=== PATIENT | male | born 1965 | race Caucasian/White ===

== ENCOUNTER 2017-12-28 11:48 | Inpatient (IN) ==
[2017-12-28] MEDS ORDERED: diazePAM 5 MG TABLET PO ONE (12:12)
--- NOTE | 2017-12-28 12:17 | Emergency Department Note ---
Disposition Clinical Impression: Alcohol withdrawal delirium Disposition: Admitted As Inpatient Condition: Good Referrals: Winifred Eddy, [employer] [Primary Care Provider] - Forms: ED Satisfaction Letter Time of Disposition: 16:09 Psych HPI - General Chief Complaint: ED Psychiatric Symptoms Stated Complaint: psych eval, hallucinations Time Seen by Provider: 12/28/17 12:00 Source: patient, family Limitations: no limitations Nursing Notes Reviewed: Yes Vital Signs Reviewed: Yes - History of Present Illness HPI Narrative: This is a 52 year-old male with history of COPD, HLD, alcoholism (last drink 6 days ago), cirrhosis, and PTSD. He presents with auditory hallucinations ( "chainsaw sound") and visual hallucinations ("snakes, mice") for he past 3-4 days. He says he wanted to hit his with a stick because of the snakes and mice. Pt complaint: other (Visual Hallucinations) If medical clearance, reason: medical condition, psychiatric condition Onset (ago): day(s) (3-4) Improves with: none Worsens with: none Context: recent alcohol abuse (last drink 6 days ago), not taking psychiatric medications (didn't take antipsychotic medication a couple of days last week), new medication(s) (recently started Wellbutrin) Associated Psychiatric Symptoms: auditory hallucinations, visual hallucinations Associated symptoms: Denies: headache, shortness of breath Traumatic symptoms: denies traumatic injury Self harm or harm to others: admits thoughts of harming others - Related Data Home Medications Medication Instructions Recorded Confirmed Albuterol Sulfate [Proair Hfa] 2 puff IH Q4-6H PRN 12/28/17 12/28/17 Amantadine [Symmetrel] 100 mg PO BID 12/28/17 12/28/17 BuPROPion XL (24 HR) [Wellbutrin 300 mg PO DAILY 12/28/17 12/28/17 XL] Fluticasone/Salmeterol [Advair 1 puff IH BID 12/28/17 12/28/17 500-50 Diskus] Folic Acid 1 mg PO DAILY 12/28/17 12/28/17 Multivit-Min/FA/Lycopen/Lutein [A 1 tab PO DAILY 12/28/17 12/28/17 Thru Z Select Multivit Tab] PARoxetine HCl [Paroxetine HCl] 40 mg PO DAILY 12/28/17 12/28/17 Pravastatin Sodium [Pravachol] 40 mg PO DAILY 12/28/17 12/28/17 Propranolol [Inderal] 10 mg PO BID 12/28/17 12/28/17 RisperiDONE [Risperdal] 0.5 mg PO TID 12/28/17 12/28/17 Tamsulosin [Flomax] 0.4 mg PO DAILY 12/28/17 12/28/17 Valproic Acid [Depakene] 250 mg PO QAM 12/28/17 12/28/17 Valproic Acid [Depakene] 500 mg PO QPM 12/28/17 12/28/17 risperiDONE [RisperDAL] 0.25 mg PO TID 12/28/17 12/28/17 Allergies Allergy/AdvReac Type Severity Reaction Status Date / Time Cyclobenzaprine AdvReac See Verified 12/28/17 11:53 [From Flexeril] Comments All systems ED: reviewed and negative except as stated. Cardiovascular: Denies: chest pain Respiratory: Denies: dyspnea Gastrointestinal: Denies: abdominal pain Neurological: Reports: other (tremulous) Psychiatric: Reports: auditory hallucinations, visual hallucinations Past Medical History - Past Medical History Medical history: Reports: GI bleed, other Surgical history: Reports: other Psychiatric history: Reports: no psych history - Social History Smoking Status: Never smoker Smokeless Tobacco Status: No Alcohol use: Reports: rarely Drug use: Reports: none Physical Exam - General Limitations: no limitations General appearance: alert, in no apparent distress - Head Head exam: atraumatic, normocephalic - Eye Eye exam: Present: normal appearance, PERRL, EOMI, nystagmus (few beats) - ENT ENT exam: normal exam - Neck Neck exam: Present: normal inspection. Absent: meningismus - Respiratory Respiratory exam: Present: normal lung sounds bilaterally. Absent: respiratory distress - Cardiovascular Cardiovascular exam: Present: regular rate, normal rhythm, normal heart sounds - Abdominal Exam Abdominal exam: Present: soft, Non-Tender. Absent: distention - Extremities Exam Extremities exam: Present: normal inspection - Neurological Exam Neurological exam: Present: alert, oriented X3. Absent: CN II-XII intact, motor sensory deficit - Psychiatric Psychiatric exam: Present: anxious (mildly) - Skin Skin exam: Present: warm, dry, intact Course - Reevaluation(s) Reevaluation #1: Updated patient and family about recommendations and plans. On recheck, patient says that the Valium "camled me down a little bit," but he' s still having the hallucinations. Time: 16:08 - Consultations Consultation #1: Patient has been evaluated by [facility], and they suspect symptoms due to EtOH withdrawal. They recommend admission for detox and they will consult upstairs as needed. Time: 16:08 Consultation #2: Reviewed case with Dr. Payne, and patient accepted for admission. Time: 16:28 Vital Signs Temperature 98.0 F 12/28/17 11:52 Pulse Rate 82 12/28/17 11:52 Respiratory Rate 18 12/28/17 11:52 Blood Pressure 120/86 12/28/17 11:52 O2 Sat by Pulse Oximetry 95 12/28/17 11:52 Temperature 97.3 F L 12/28/17 12:46 Pulse Rate 81 12/28/17 16:55 Respiratory Rate 16 12/28/17 16:55 Blood Pressure 129/96 12/28/17 16:55 O2 Sat by Pulse Oximetry 98 12/28/17 16:55 Oxygen Delivery Oxygen Delivery Room Air Psych - MDM Narrative Medical decision making narrative: This is a 52 year-old male with history of alcholism and PTSD who presents with hallucinations for 3-4 days. Last drink was about 6 days ago. There has also been some medication noncompliance. DDx includes EtOH withdrawal, medication noncompliance, primary psychiatric problems, mediation toxicity (e.g., valproic acid). Less likely hepatic encephalopathy. - Lab Data Lab results reviewed: Yes I reviewed the patient's lab results. Result diagrams: 12/28/17 12:25 12/28/17 12:25 Lab Results 12/28/17 12/28/17 12/28/17 Range/Units 12:25 12:25 12:25 WBC 6.2 (4.3-11.1) K/mcL RBC 4.71 (4.19-5.50) M/mcL Hgb 14.8 (12.9-16.9) g/dL Hct 43.1 (37.5-50.1) % MCV 91.5 (83.0-100.0) fL MCH 31.4 (28.0-33.3) pg MCHC 34.3 (31.6-35.5) g/dL RDW 12.9 (11.5-14.5) % Plt Count 143 (140-400) K/mcL MPV 12.2 (9.4-12.4) fL Immature Gran % 0.5 (0-4) % Seg Neutrophils % 44.7 % Lymphocytes % 38.7 % Monocytes % 14.5 % Eosinophils % 1.0 % Basophils % 0.6 % Neutrophils # 2.8 (1.6-8.9) K/mcL Lymphocytes # 2.4 (0.6-4.6) K/mcL Monocytes # 0.9 (0.0-1.3) K/mcL Eosinophils # 0.1 (0.0-0.6) K/mcL Basophils # 0.0 (0.0-0.2) K/mcL Sodium 136 (136-145) mEq/L Potassium 4.4 (3.5-5.1) mEq/L Chloride 101 (98-107) mEq/L Carbon Dioxide 27 (23-29) mEq/L BUN 15 (6-20) mg/dL Creatinine 1.20 (0.70-1.30) mg/dL Est GFR ( Amer) > 60 (> 60) Est GFR (Non-Af Amer) > 60 (> 60) BUN/Creatinine Ratio 13 (6-26) Glucose 105 (70-105) mg/dL Calculated Osmolality 283 (280-300) Calcium 9.5 (8.6-10.3) mg/dL Total Bilirubin 0.7 (0.3-1.0) mg/dL Direct Bilirubin 0.2 (0.0-0.2) mg/dL Indirect Bilirubin 0.5 (0.0-1.2) mg/dL AST 17 (13-39) Units/L ALT 21 (7-52) Units/L Alkaline Phosphatase 82 (34-104) Units/L Ammonia 48 (16-53) mcmol/L Serum Total Protein 7.2 (6.4-8.9) g/dL Albumin 4.9 (3.5-5.7) g/dL Globulin 2.3 L (2.4-3.5) g/dL Albumin/Globulin Ratio 2.1 (1.1-2.2) Urine Color (Yellow) Urine Clarity (Clear) Urine pH (5.0-8.0) pH Units Ur Specific Atwood (1.010-1.025) Urine Protein (Neg-Trace) mg/dL Urine Glucose (UA) (Normal) mg/dL Urine Ketones (Negative) mg/dL Urine Blood (Negative) Urine Nitrite (Negative) Urine Bilirubin (Negative) Urine Urobilinogen (Normal) mg/dL Ur Leukocyte Esterase (Negative) Salicylates < 2.5 L (15.0-30.0) mg/dL Urine Opiates Screen (Rwrecg=865) ng/mL Acetaminophen < 10 L (10-20) mcg/mL Ur Barbiturates Screen (Amrjsk=580) ng/mL Valproic Acid 68 (50-100) mcg/mL Ur Phencyclidine Scrn (Cutoff=25) ng/mL Ur Amphetamines Screen (Xnvzev=8578) ng/mL U Benzodiazepines Scrn (Qlidus=621) ng/mL Urine Cocaine Screen (Cutoff= 300) ng/mL U Marijuana (THC) Screen (Cutoff = 50) ng/mL Ethyl Alcohol < 10 (Less than 10) mg/dL 12/28/17 12/28/17 Range/Units 12:29 12:46 WBC (4.3-11.1) K/mcL RBC (4.19-5.50) M/mcL Hgb (12.9-16.9) g/dL Hct (37.5-50.1) % MCV (83.0-100.0) fL MCH (28.0-33.3) pg MCHC (31.6-35.5) g/dL RDW (11.5-14.5) % Plt Count (140-400) K/mcL MPV (9.4-12.4) fL Immature Gran % (0-4) % Seg Neutrophils % % Lymphocytes % % Monocytes % % Eosinophils % % Basophils % % Neutrophils # (1.6-8.9) K/mcL Lymphocytes # (0.6-4.6) K/mcL Monocytes # (0.0-1.3) K/mcL Eosinophils # (0.0-0.6) K/mcL Basophils # (0.0-0.2) K/mcL Sodium (136-145) mEq/L Potassium (3.5-5.1) mEq/L Chloride (98-107) mEq/L Carbon Dioxide (23-29) mEq/L BUN (6-20) mg/dL Creatinine (0.70-1.30) mg/dL Est GFR ( Amer) (> 60) Est GFR (Non-Af Amer) (> 60) BUN/Creatinine Ratio (6-26) Glucose (70-105) mg/dL Calculated Osmolality (280-300) Calcium (8.6-10.3) mg/dL Total Bilirubin (0.3-1.0) mg/dL Direct Bilirubin (0.0-0.2) mg/dL Indirect Bilirubin (0.0-1.2) mg/dL AST (13-39) Units/L ALT (7-52) Units/L Alkaline Phosphatase (34-104) Units/L Ammonia (16-53) mcmol/L Serum Total Protein (6.4-8.9) g/dL Albumin (3.5-5.7) g/dL Globulin (2.4-3.5) g/dL Albumin/Globulin Ratio (1.1-2.2) Urine Color Yellow (Yellow) Urine Clarity Clear (Clear) Urine pH 6.5 (5.0-8.0) pH Units Ur Specific [place] 1.018 (1.010-1.025) Urine Protein Negative (Neg-Trace) mg/dL Urine Glucose (UA) Normal (Normal) mg/dL Urine Ketones Trace H (Negative) mg/dL Urine Blood Negative (Negative) Urine Nitrite Negative (Negative) Urine Bilirubin Negative (Negative) Urine Urobilinogen Normal (Normal) mg/dL Ur Leukocyte Esterase Negative (Negative) Salicylates (15.0-30.0) mg/dL Urine Opiates Screen Negative (Vgzotm=218) ng/mL Acetaminophen (10-20) mcg/mL Ur Barbiturates Screen Negative (Thopot=070) ng/mL Valproic Acid (50-100) mcg/mL Ur Phencyclidine Scrn Negative (Cutoff=25) ng/mL Ur Amphetamines Screen Negative (Yiwhxw=9540) ng/mL U Benzodiazepines Scrn Negative (Hxqvgv=434) ng/mL Urine Cocaine Screen Negative (Cutoff= 300) ng/mL U Marijuana (THC) Screen Negative (Cutoff = 50) ng/mL Ethyl Alcohol (Less than 10) mg/dL Psychiatric Medical Clearance - Medical Clearance Checklist Medical History: No Social History Section defined Current Vitals: Last Vital Signs Temp 97.3 F L 12/28/17 12:46 Pulse 81 12/28/17 16:55 Resp 16 12/28/17 16:55 BP 129/96 12/28/17 16:55 Pulse Ox 98 12/28/17 16:55 Psychiatric Lab Panel: Drug Levels and Toxicity 12/28/17 12/28/17 12:25 12:46 Urine Opiates Screen Negative Acetaminophen < 10 L Ur Barbiturates Screen Negative Ur Phencyclidine Scrn Negative Ur Amphetamines Screen Negative U Benzodiazepines Scrn Negative Urine Cocaine Screen Negative U Marijuana (THC) Screen Negative Ethyl Alcohol < 10 Abnormal Labs: Abnormal lab results Globulin 2.3 g/dL (2.4-3.5) L 12/28/17 12:25 Urine Ketones Trace mg/dL (Negative) H 12/28/17 12:29 Salicylates < 2.5 mg/dL (15.0-30.0) L 12/28/17 12:25 Acetaminophen < 10 mcg/mL (10-20) L 12/28/17 12:25 Statement of Medical Clearance: I have evaluated the patient, reviewed diagnostic information, and certify that the patient's medical condition is sufficiently stable that transfer to the psychiatric unit does not pose a significant risk of deterioration.
[2017-12-28 12:59] LABS: Basophils % 0.6 %; Eosinophils # 0.1 K/mcL (0.0-0.6); Hematocrit 43.1 % (37.5-50.1); Hemoglobin 14.8 g/dL (12.9-16.9); Immature Granulocytes % 0.5 % (0-4); Lymphocytes # 2.4 K/mcL (0.6-4.6); Lymphocytes % 38.7 %; Mean Corpuscular HGB Conc 34.3 g/dL (31.6-35.5); Mean Corpuscular Hemoglobin 31.4 pg (28.0-33.3); Mean Corpuscular Volume 91.5 fL (83.0-100.0); Mean Platelet Volume 12.2 fL (9.4-12.4); Monocytes # 0.9 K/mcL (0.0-1.3); Monocytes % 14.5 %; Neutrophils # 2.8 K/mcL (1.6-8.9); Platelet Count 143 K/mcL (140-400); Red Blood Count 4.71 M/mcL (4.19-5.50); Red Cell Distribution Width 12.9 % (11.5-14.5); Segmented Neutrophils % 44.7 %
[2017-12-28 13:00] LABS: Bilirubin,Urine Negative (Negative); Blood,Urine Negative (Negative); Clarity,Urine Clear (Clear); Color,Urine Yellow (Yellow); Glucose,Urine (UA) Normal (Normal); Ketones,Urine Trace mg/dL (Negative); Leukocyte Esterase,Urine Negative (Negative); Nitrite,Urine Negative (Negative); PH,Urine 6.5 pH Units (5.0-8.0); Protein,Urine Negative (Neg-Trace); Specific Gravity,Urine 1.018 (1.010-1.025); Urobilinogen,Urine Normal (Normal)
[2017-12-28 13:12] LABS: Acetaminophen < 10 mcg/mL (10-20); Alanine Aminotransferase 21 Units/L (7-52); Albumin 4.9 g/dL (3.5-5.7); Albumin/Globulin Ratio 2.1 (1.1-2.2); Alkaline Phosphatase 82 Units/L (34-104); Aspartate Amino Transferase 17 Units/L (13-39); BUN/Creatinine Ratio 13 (6-26); Bilirubin,Direct 0.2 mg/dL (0.0-0.2); Bilirubin,Indirect 0.5 mg/dL (0.0-1.2); Bilirubin,Total 0.7 mg/dL (0.3-1.0); Blood Urea Nitrogen 15 mg/dL (6-20); Calcium 9.5 mg/dL (8.6-10.3); Carbon Dioxide 27 mEq/L (23-29); Chloride 101 mEq/L (98-107); Ethanol < 10 mg/dL (Less than 10); Globulin 2.3 g/dL (2.4-3.5); Glucose 105 mg/dL (70-105); Osmolality,Calculated 283 (280-300); Potassium 4.4 mEq/L (3.5-5.1); Salicylate < 2.5 mg/dL (15.0-30.0); Sodium 136 mEq/L (136-145); Total Protein 7.2 g/dL (6.4-8.9); Valproate 68 mcg/mL (50-100); eGFR For African Americans > 60 (> 60); eGFR For Non-African Americans > 60 (> 60)
[2017-12-28 13:22] LABS: Amphetamine Screen,Urine Negative ng/mL (Cutoff=1000); Barbiturate Screen,Urine Negative ng/mL (Cutoff=200); Benzodiazepines Screen,Urine Negative ng/mL (Cutoff=200); Cannabinoid Screen,Urine Negative ng/mL (Cutoff = 50); Cocaine Screen,Urine Negative ng/mL (Cutoff= 300); Opiate Screen,Urine Negative ng/mL (Cutoff=300); Phencyclidine Screen,Urine Negative ng/mL (Cutoff=25)
[2017-12-28] MEDS ORDERED: risperiDONE 0.25 MG TABLET PO SCH ×2 (16:30)
[2017-12-28] MEDS ORDERED: risperiDONE 0.25 MG TABLET PO ONE (17:30)
--- NOTE | 2017-12-28 18:32 | Internal Med History&Physical ---
Date of Encounter: 12/28/17 Time of Encounter: 18:20 Internal Medicine - H&P: HPI Admitted From: Emergency Dept Plans for Post Hospital Care: Home History of present illness: Mr. Moeller is a 52 year old male with history of ETOH abuse, Emphysema, COPD, acute resp failure, hepatitis B, polysubstance abuse. Pt states he had lung surgery for emphysema at [facility] a year ago and post op he developed ETOH withdrawal. States at that time he had to be intubated. He reports that he drinks about a 12 pack of beer a day and has been doing so for about 32 years. Pt states his last ETOH drink was about sick days ago. States he has been hallucinating for about 3- 4 days. HE reports that he has been seeing snakes and mice. Past Med Surg Social Fam HX - Past Medical History Medical history: GI bleed, other Additional medical history: emphysema Psychiatric history: no psych history - Past Surgical History Surgical History: other Additional surgical history: t&a, lung reduction surgery - Social History Smoking Status: Never smoker Smokeless Tobacco Status: No Alcohol use: rarely Drug use: none - Family History Father Adopted: No Family Member Ethnicity: Non- Living Status: Still Living Hx Family Cardiac Disorders: Yes (pacer/defib,[place]) Hx Family Respiratory Disorders: Yes (COPD) Hx Family Cancer: No Hx Family GI Disorders: No Hx Family Endocrine Disorder: Yes (DM) Hx Family Neuromuscular Disorders: No Hx Family Neurologic Disorders: No Hx Family HEENT Disorders: No Hx Family Autoimmune Disorders: No Internal Medicine - H&P: Meds Albuterol Sulfate [Proair Hfa] 2 puff IH Q4-6H PRN 12/28/17 [History] Amantadine [Symmetrel] 100 mg PO BID 12/28/17 [History] BuPROPion XL (24 HR) [Wellbutrin XL] 300 mg PO DAILY 12/28/17 [History] Fluticasone/Salmeterol [Advair 500-50 Diskus] 1 puff IH BID 12/28/17 [History] Folic Acid 1 mg PO DAILY 12/28/17 [History] Multivit-Min/FA/Lycopen/Lutein [A Thru Z Select Multivit Tab] 1 tab PO DAILY 12/10 [History] PARoxetine HCl [Paroxetine HCl] 40 mg PO DAILY 12/28/17 [History] Pravastatin Sodium [Pravachol] 40 mg PO DAILY 12/28/17 [History] Propranolol [Inderal] 10 mg PO BID 12/28/17 [History] RisperiDONE [Risperdal] 0.5 mg PO TID 12/28/17 [History] Tamsulosin [Flomax] 0.4 mg PO DAILY 12/28/17 [History] Valproic Acid [Depakene] 250 mg PO QAM 12/28/17 [History] Valproic Acid [Depakene] 500 mg PO QPM 12/28/17 [History] risperiDONE [RisperDAL] 0.25 mg PO TID 12/28/17 [History] 3 Allergy/AdvReac Type Severity Reaction Status Date / Time Cyclobenzaprine AdvReac See Verified 12/28/17 11:53 [From Flexeril] Comments All Systems PM: A 10-system review of systems was performed and is negative for pertinent findings except as documented above in the HPI. - Constitutional Vitals: Temp Pulse Resp BP Pulse Ox 97.3 F L 81 16 129/96 98 12/28/17 12:46 12/28/17 16:55 12/28/17 16:55 12/28/17 16:55 12/28/17 16:55 General appearance: Present: A&O X 3, no acute distress - Head Head exam: Present: atraumatic, normocephalic - Eye Eye exam: Present: PERRL, conjuntiva pink, sclera anicteric Pupils: Present: PERRL - Neck Neck exam general surgery: Present: supple, trachea midline. Absent: lymphadenopathy - Respiratory Respiratory exam: Present: decreased breath sounds, CTAB. Absent: accessory muscle use, rales, rhonchi, wheezes - Cardiovascular Cardiovascular exam: Present: RRR, +S1, +S2. Absent: diastolic murmur, gallop, rubs, systolic murmur - GI/Abdominal GI/Abdominal exam: Present: normal bowel sounds, soft, no peritoneal signs. Absent: distended, tenderness - Extremities Exam Extremities exam: Present: pedal edema, warm, radial pulses palpable and symmetrical. Absent: calf tenderness, cyanotic - Neurological Exam Neurological exam: Present: CN II-XII intact, oriented X3, no focal deficits. Absent: pronater drift, facial droop, speech deficit - Skin Skin exam: Present: dry, intact Internal Med - H&P Results - Labs CBC & Chem 7: 12/28/17 12:25 12/28/17 12:25 Labs: Short CBC 12/28/17 Range/Units 12:25 WBC 6.2 (4.3-11.1) K/mcL Hgb 14.8 (12.9-16.9) g/dL Hct 43.1 (37.5-50.1) % Plt Count 143 (140-400) K/mcL Neutrophils # 2.8 (1.6-8.9) K/mcL BMP 12/28/17 12:25 Sodium 136 Potassium 4.4 Chloride 101 Carbon Dioxide 27 BUN 15 Creatinine 1.20 Glucose 105 Calcium 9.5 Liver Function 12/28/17 Range/Units 12:25 Total Bilirubin 0.7 (0.3-1.0) mg/dL Direct Bilirubin 0.2 (0.0-0.2) mg/dL AST 17 (13-39) Units/L ALT 21 (7-52) Units/L Alkaline Phosphatase 82 (34-104) Units/L Albumin 4.9 (3.5-5.7) g/dL Urine 12/28/17 Range/Units 12:29 Urine Color Yellow (Yellow) Urine Clarity Clear (Clear) Urine pH 6.5 (5.0-8.0) pH Units Ur Specific [place]all 1.018 (1.010-1.025) Urine Protein Negative (Neg-Trace) mg/dL Urine Glucose (UA) Normal (Normal) mg/dL - Assessment and plan (1) Alcohol withdrawal delirium Current Visit: Yes Status: Acute Assessment and plan: Will place on Librium taper. Will monitor on telemetry. [facility] protocol. sitter. (2) Alcohol abuse Current Visit: No Status: Acute Assessment and plan: Cessation strongly adviced. Pt states he does not think he has a alcohol problem. He states he is just a heavy drinker. (3) COPD (chronic obstructive pulmonary disease) Current Visit: No Status: Acute Assessment and plan: Not in acute exacerbation. Will resume home respiratory regimen for now. Qualifiers: Qualified Code(s): J44.9 - Chronic obstructive pulmonary disease, unspecified - Time Spent With Patient Total time spent is greater than 50% in coordination of care (as documented) at patient's floor/unit and/or counseling patient: 25 - 35 minutes
[2017-12-28] MEDS ORDERED: Acetaminophen 325 MG TABLET PO PRN (19:34)
[2017-12-28] MEDS ORDERED: *HR* Promethazine 25 MG/ML VIAL IVP PRN (19:34)
[2017-12-28] MEDS ORDERED: Naloxone 0.4 MG/ML INJ IVP PRN (19:34)
[2017-12-28 20:35] LABS: Magnesium 2.2 mg/dL (1.6-2.6); Phosphorous 3.7 mg/dL (2.7-4.5)
[2017-12-28] MEDS ORDERED: Valproic Acid 250 MG CAPSULE PO SCH (22:00)
[2017-12-28] MEDS: risperiDONE 0.25 MG TABLET PO SCH (22:18)
[2017-12-28] MEDS: 0.9 % Sodium Chloride 1,000 ML IVC SCH (22:19)
[2017-12-28] MEDS: Valproic Acid 250 MG CAPSULE PO SCH (22:25)
[2017-12-28] MEDS: *HR* LORazepam 2 MG/ML VIAL IVP PRN (22:26)
[2017-12-28] MEDS: Budesonide/Formoterol 160/4.5 MDI IH SCH (22:53)
[2017-12-29 04:41] LABS: BUN/Creatinine Ratio 14 (6-26); Blood Urea Nitrogen 14 mg/dL (6-20); Calcium 8.9 mg/dL (8.6-10.3); Carbon Dioxide 23 mEq/L (23-29); Chloride 102 mEq/L (98-107); Glucose 95 mg/dL (70-105); Osmolality,Calculated 284 (280-300); Potassium 3.7 mEq/L (3.5-5.1); Sodium 137 mEq/L (136-145); eGFR For African Americans > 60 (> 60); eGFR For Non-African Americans > 60 (> 60)
[2017-12-29] MEDS: *HR* Enoxaparin 40 MG/0.4 ML SYRINGE SQ SCH (05:16)
[2017-12-29] MEDS ORDERED: *HR* LORazepam 2 MG/ML VIAL IVP PRN ×2 (07:05)
[2017-12-29] MEDS: Valproic Acid 250 MG CAPSULE PO SCH ×2 (07:51→22:03)
[2017-12-29] MEDS: BuPROPion XL (24 HR) 150 MG TABLET PO SCH (07:51)
[2017-12-29] MEDS: risperiDONE 0.25 MG TABLET PO SCH ×3 (07:51→22:04)
[2017-12-29] MEDS: Folic Acid 1 MG TABLET PO SCH (07:55)
[2017-12-29] MEDS: Multivit/Ca/Min/Fe/FA 1 TAB TABLET PO SCH (07:55)
[2017-12-29] MEDS: Budesonide/Formoterol 160/4.5 MDI IH SCH ×2 (08:00→20:18)
[2017-12-29] MEDS ORDERED: Dexmedetomidine HCl 400 MCG/100 ML MLS IVC ONE (08:29)
[2017-12-29] MEDS: 0.9 % Sodium Chloride 1,000 ML IVC SCH (08:56)
--- NOTE | 2017-12-29 10:19 | Internal Med Progress Note ---
<Loren Hagen - Last Filed: 12/29/17 14:28> Date of Encounter: 12/29/17 Time of Encounter: 10:17 - Assessment and plan (1) Alcohol withdrawal delirium Current Visit: Yes Status: Acute Assessment and plan: Pt presented complaining of hearing chainsaws, seeing snakes and mice on admission. Pt was agitated this morning, worsening DT sx and placed on precedex gtt. Will wean as able as we do not want to over-sedate him. Plan: Continue CIWA protocol Continue precedex gtt, wean as able Continue librium taper Tele monitor (2) Alcohol abuse Current Visit: No Status: Acute Assessment and plan: Pt stated in ED that last drink was 6 days prior to admission. Hx of DTs after surgery at [facility]. Drinks about a 12 pack of beers daily Management per above plan (3) PTSD (post-traumatic stress disorder) Current Visit: Yes Status: Chronic Assessment and plan: Continue home meds, consider psych evaluation after medically stable from DTs. (4) Major depress dis, severe Current Visit: Yes Status: Chronic Assessment and plan: continue home meds (5) COPD (chronic obstructive pulmonary disease) Current Visit: No Status: Acute Assessment and plan: Not currently in exacerbation, continue home meds. Qualifiers: COPD type: emphysema Emphysema type: unspecified Qualified Code(s): J43.9 - Emphysema, unspecified (6) CHRISTINE (generalized anxiety disorder) Current Visit: Yes Status: Chronic Assessment and plan: continue home meds - Time Spent With Patient Total time spent is greater than 50% in coordination of care (as documented) at patient's floor/unit and/or counseling patient: - Subjective Interval history: Patient seen and examined. Prior to examination pt was noted to be agitated and RN notified attending physician Dr. Bright, who started pt on precedex gtt. Pt now resting comfortably, does not arouse for me. - Constitutional Vitals: Temp Pulse Resp BP Pulse Ox 98.5 F 82 16 135/95 96 12/29/17 07:26 12/29/17 07:26 12/29/17 08:02 12/29/17 07:26 12/29/17 08:02 General appearance: Present: disheveled, no acute distress. Absent: answers questions appropriately Exam: Pt sedated and does not arouse for my exam - Head Head exam: Present: atraumatic, normocephalic - Eye Eye exam: Present: PERRL, scleral icterus. Absent: conjunctival injection - Neck Neck exam general surgery: Present: supple, trachea midline. Absent: lymphadenopathy - Respiratory Respiratory exam: Present: CTAB. Absent: accessory muscle use, rales, rhonchi, wheezes - Cardiovascular Cardiovascular exam: Present: RRR, +S1, +S2. Absent: diastolic murmur, gallop, rubs, systolic murmur - GI/Abdominal GI/Abdominal exam: Present: normal bowel sounds, soft, no peritoneal signs. Absent: distended, tenderness - Extremities Exam Extremities exam: Present: warm, radial pulses palpable and symmetrical. Absent : calf tenderness, cyanotic, pedal edema - Neurological Exam Neurological exam: Present: altered (pt sedated medically) - Psychiatric Psychiatric exam: Present: agitated Additional comments: currently on precedex drip secondary to aggitation. Unable to fully assess at this time. - Skin Skin exam: Present: dry, intact Additional comments: multiple tattoos Internal Medicine: Result - Labs CBC & Chem 7: 12/28/17 12:25 12/29/17 03:21 Labs: BMP 12/29/17 03:21 Sodium 137 Potassium 3.7 Chloride 102 Carbon Dioxide 23 BUN 14 Creatinine 1.02 Glucose 95 Calcium 8.9 Consult Discharge Plan - Plan Referrals: Winifred Eddy [employer] SECURITY CONSULTANT [Primary Care Provider] - 01/06/18 3:00 pm <Dav Bright - Last Filed: 12/29/17 18:57> Date of Encounter: 12/29/17 - Assessment and plan (1) COPD (chronic obstructive pulmonary disease) Current Visit: No Status: Acute Qualifiers: COPD type: emphysema Emphysema type: unspecified Qualified Code(s): J43.9 - Emphysema, unspecified (2) Alcohol abuse Current Visit: No Status: Acute (3) Alcohol withdrawal delirium Current Visit: Yes Status: Acute (4) PTSD (post-traumatic stress disorder) Current Visit: Yes Status: Chronic (5) Major depress dis, severe Current Visit: Yes Status: Chronic (6) CHRISTINE (generalized anxiety disorder) Current Visit: Yes Status: Chronic - Time Spent With Patient Total time spent is greater than 50% in coordination of care (as documented) at patient's floor/unit and/or counseling patient: - Constitutional Vitals: Temp Pulse Resp BP Pulse Ox 97.1 F L 57 18 122/89 95 12/29/17 16:00 12/29/17 16:00 12/29/17 16:00 12/29/17 16:00 12/29/17 16:00 Internal Medicine: Result - Labs CBC & Chem 7: 12/28/17 12:25 12/29/17 03:21 Labs: BMP 12/29/17 03:21 Sodium 137 Potassium 3.7 Chloride 102 Carbon Dioxide 23 BUN 14 Creatinine 1.02 Glucose 95 Calcium 8.9 - Attending Attestation I examined this patient and my medical decision-making was reviewed with the Resident Physician. I agree with the documented findings, disposition and treatment plan as described except to the extent set forth below.
[2017-12-29] MEDS: Dexmedetomidine HCl 400 MCG/100 ML MLS IVC SCH (12:14)
[2017-12-29] MEDS ORDERED: 0.9 % Sodium Chloride 1,000 ML ONE (20:30)
[2017-12-30] MEDS: Dexmedetomidine HCl 400 MCG/100 ML MLS IVC SCH ×3 (00:23→23:46)
[2017-12-30 04:47] LABS: BUN/Creatinine Ratio 15 (6-26); Blood Urea Nitrogen 13 mg/dL (6-20); Calcium 8.8 mg/dL (8.6-10.3); Carbon Dioxide 24 mEq/L (23-29); Chloride 105 mEq/L (98-107); Glucose 115 mg/dL (70-105); Osmolality,Calculated 289 (280-300); Sodium 139 mEq/L (136-145); eGFR For African Americans > 60 (> 60); eGFR For Non-African Americans > 60 (> 60)
[2017-12-30] MEDS: *HR* Enoxaparin 40 MG/0.4 ML SYRINGE SQ SCH (06:14)
[2017-12-30] MEDS: Budesonide/Formoterol 160/4.5 MDI IH SCH ×2 (07:16→22:47)
--- NOTE | 2017-12-30 07:49 | Internal Med Progress Note ---
<Loren Hagen - Last Filed: 12/30/17 15:54> Date of Encounter: 12/30/17 Time of Encounter: 07:49 - Assessment and plan (1) Alcohol withdrawal delirium Current Visit: Yes Status: Acute Assessment and plan: Pt presented complaining of hearing chainsaws, seeing snakes and mice on admission. Pt was continues on precedex, but is alert and oriented to person, place and time. He denies auditory hallucinations. He is still seeing mice and has a tremor. Will plan to d/c adame and try voiding trial tomorrow Plan: Continue CIWA protocol Continue precedex gtt, wean as able Continue librium taper Tele monitor (2) Alcohol abuse Current Visit: No Status: Acute Assessment and plan: Pt stated in ED that last drink was 6 days prior to admission. Hx of DTs after surgery at [facility]. Drinks about a 12 pack of beers daily x32 years. Has tried to quit in the past unsuccessfully. He is interested in quitting, does not want AA or counseling. Management per above plan (3) PTSD (post-traumatic stress disorder) Current Visit: Yes Status: Chronic Assessment and plan: Continue home meds, consider psych evaluation after medically stable from DTs. (4) Major depress dis, severe Current Visit: Yes Status: Chronic Assessment and plan: continue home meds (5) COPD (chronic obstructive pulmonary disease) Current Visit: No Status: Acute Assessment and plan: Not currently in exacerbation, continue home meds. Qualifiers: COPD type: emphysema Emphysema type: unspecified Qualified Code(s): J43.9 - Emphysema, unspecified (6) CHRISTINE (generalized anxiety disorder) Current Visit: Yes Status: Chronic Assessment and plan: continue home meds - Time Spent With Patient Total time spent is greater than 50% in coordination of care (as documented) at patient's floor/unit and/or counseling patient: - Subjective Interval history: Patient seen and examined. He is sitting up in bed trying to turn his cell phone on. He states that he is not hearing chainsaws or having any other auditory hallucinations. He is still seeing mice. He states that he is wanting to quit drinking because it is killing him. He is not interested in AA or any resources. He states he went through AA as a kid and does not want to do it again. He did not recall eating breakfast. His breakfast tray was sitting in front of him and he asked if it was his same tray from dinner last night, he did not recall eating anything this morning. - Constitutional Vitals: Temp Pulse Resp BP Pulse Ox 98.6 F 61 16 116/85 93 12/30/17 03:22 12/30/17 04:00 12/30/17 03:22 12/30/17 04:00 12/29/17 23:46 General appearance: Present: disheveled, A&O X 3, no acute distress, answers questions appropriately - Head Head exam: Present: atraumatic, normocephalic - Eye Eye exam: Present: PERRL, conjuntiva pink, sclera anicteric Pupils: Present: PERRL - Neck Neck exam general surgery: Present: supple, trachea midline. Absent: lymphadenopathy - Respiratory Respiratory exam: Present: CTAB. Absent: accessory muscle use, rales, rhonchi, wheezes - Cardiovascular Cardiovascular exam: Present: RRR, +S1, +S2. Absent: diastolic murmur, gallop, rubs, systolic murmur - GI/Abdominal GI/Abdominal exam: Present: normal bowel sounds, soft, no peritoneal signs. Absent: distended, tenderness - Extremities Exam Extremities exam: Present: warm, radial pulses palpable and symmetrical. Absent : calf tenderness, cyanotic, pedal edema - Neurological Exam Neurological exam: Present: alert, oriented X3. Absent: facial droop, speech deficit - Expanded Neurological Exam Neurological exam expanded: Present: memory loss-recent event, tremor Coma Scale Eye Opening: Spontaneous Coma Scale Motor Response: Obeys Commands Coma Scale Verbal Response: Oriented Coma Scale Total: 15 Internal Medicine: Result - Labs CBC & Chem 7: 12/28/17 12:25 12/30/17 03:36 Labs: BMP 12/30/17 03:36 Sodium 139 Potassium 4.0 Chloride 105 Carbon Dioxide 24 BUN 13 Creatinine 0.84 Glucose 115 H Calcium 8.8 Consult Discharge Plan - Plan Referrals: Winifred Eddy CNP [Primary Care Provider] - 01/06/18 3:00 pm <Dav Bright - Last Filed: 12/30/17 18:54> Date of Encounter: 12/30/17 - Assessment and plan (1) COPD (chronic obstructive pulmonary disease) Current Visit: No Status: Acute Qualifiers: COPD type: emphysema Emphysema type: unspecified Qualified Code(s): J43.9 - Emphysema, unspecified (2) Alcohol abuse Current Visit: No Status: Acute (3) Alcohol withdrawal delirium Current Visit: Yes Status: Acute (4) PTSD (post-traumatic stress disorder) Current Visit: Yes Status: Chronic (5) Major depress dis, severe Current Visit: Yes Status: Chronic (6) CHRISTINE (generalized anxiety disorder) Current Visit: Yes Status: Chronic - Time Spent With Patient Total time spent is greater than 50% in coordination of care (as documented) at patient's floor/unit and/or counseling patient: - Constitutional Vitals: Temp Pulse Resp BP Pulse Ox 98.1 F 62 18 102/69 95 12/30/17 12:00 12/30/17 14:00 12/30/17 14:00 12/30/17 14:00 12/30/17 14:00 Internal Medicine: Result - Labs CBC & Chem 7: 12/28/17 12:25 12/30/17 03:36 Labs: BMP 12/30/17 03:36 Sodium 139 Potassium 4.0 Chloride 105 Carbon Dioxide 24 BUN 13 Creatinine 0.84 Glucose 115 H Calcium 8.8 - Attending Attestation I examined this patient and my medical decision-making was reviewed with the Resident Physician. I agree with the documented findings, disposition and treatment plan as described except to the extent set forth below.
[2017-12-30] MEDS: Folic Acid 1 MG TABLET PO SCH (07:50)
[2017-12-30] MEDS: BuPROPion XL (24 HR) 150 MG TABLET PO SCH (07:51)
[2017-12-30] MEDS: risperiDONE 0.25 MG TABLET PO SCH ×3 (07:51→21:25)
[2017-12-30] MEDS: Multivit/Ca/Min/Fe/FA 1 TAB TABLET PO SCH (07:51)
[2017-12-30] MEDS: Valproic Acid 250 MG CAPSULE PO SCH ×2 (07:52→16:56)
[2017-12-30] MEDS ORDERED: 0.9 % Sodium Chloride 500 ML ONE (21:17)
[2017-12-31] MEDS: *HR* Enoxaparin 40 MG/0.4 ML SYRINGE SQ SCH (05:43)
[2017-12-31 06:51] LABS: BUN/Creatinine Ratio 12 (6-26); Blood Urea Nitrogen 11 mg/dL (6-20); Calcium 8.5 mg/dL (8.6-10.3); Carbon Dioxide 27 mEq/L (23-29); Chloride 106 mEq/L (98-107); Glucose 137 mg/dL (70-105); Osmolality,Calculated 288 (280-300); Potassium 3.6 mEq/L (3.5-5.1); Sodium 138 mEq/L (136-145); eGFR For African Americans > 60 (> 60); eGFR For Non-African Americans > 60 (> 60)
[2017-12-31] MEDS: Budesonide/Formoterol 160/4.5 MDI IH SCH ×2 (07:34→19:59)
[2017-12-31] MEDS: BuPROPion XL (24 HR) 150 MG TABLET PO SCH (07:38)
[2017-12-31] MEDS: Multivit/Ca/Min/Fe/FA 1 TAB TABLET PO SCH (07:38)
[2017-12-31] MEDS: risperiDONE 0.25 MG TABLET PO SCH ×3 (07:38→19:44)
[2017-12-31] MEDS: Valproic Acid 250 MG CAPSULE PO SCH ×2 (07:38→16:29)
[2017-12-31] MEDS: Folic Acid 1 MG TABLET PO SCH (07:38)
--- NOTE | 2017-12-31 09:16 | Internal Med Progress Note ---
<Loren Hagen - Last Filed: 12/31/17 15:08> Date of Encounter: 12/31/17 Time of Encounter: 09:13 - Assessment and plan (1) Alcohol withdrawal delirium Current Visit: Yes Status: Acute Assessment and plan: Pt presented complaining of hearing chainsaws, seeing snakes and mice on admission. Pt continues on precedex, but is alert and oriented to person, place and time. He denies auditory or visual hallucinations. He still has a tremor, but it is improved and mainly in his fingertips. Will plan to d/c adame and try voiding trial Plan: Continue CIWA protocol Continue precedex gtt, wean as able Continue librium taper Tele monitor D/C adame with voiding trial (2) Alcohol abuse Current Visit: No Status: Acute Assessment and plan: Pt stated in ED that last drink was 6 days prior to admission. Hx of DTs after surgery at [facility]. Drinks about a 12 pack of beers daily x32 years. Has tried to quit in the past unsuccessfully. He is interested in quitting, does not want AA or counseling. Management per above plan (3) PTSD (post-traumatic stress disorder) Current Visit: Yes Status: Chronic Assessment and plan: Continue home meds, consider psych evaluation after medically stable from DTs. (4) Major depress dis, severe Current Visit: Yes Status: Chronic Assessment and plan: continue home meds (5) COPD (chronic obstructive pulmonary disease) Current Visit: No Status: Acute Assessment and plan: Not currently in exacerbation, continue home meds. Qualifiers: COPD type: emphysema Emphysema type: unspecified Qualified Code(s): J43.9 - Emphysema, unspecified (6) CHRISTINE (generalized anxiety disorder) Current Visit: Yes Status: Chronic Assessment and plan: continue home meds - Time Spent With Patient Total time spent is greater than 50% in coordination of care (as documented) at patient's floor/unit and/or counseling patient: - Subjective Interval history: Patient seen and examined. He is sitting up in bed. He denies auditory hallucinations. He currently denies visual hallucinations, although he states that he has not had the opportunity yet to really look around and see if he may have any. He states that he has mild SOB, but nothing worse than his normal. He denies CP, abdominal pain, n/v/d, dizziness, double vision or blurry vision. He denies any issues with urinary retention at home. He states that he does not want the adame out if he is not able to get up and go to the bathroom, he does not want to use the urinal. - Constitutional Vitals: Temp Pulse Resp BP Pulse Ox 98.1 F 62 17 115/81 94 12/31/17 07:45 12/31/17 07:45 12/31/17 07:45 12/31/17 07:45 12/31/17 07:45 General appearance: Present: cooperative, A&O X 3, no acute distress, answers questions appropriately - Head Head exam: Present: atraumatic, normocephalic - Eye Eye exam: Present: PERRL, conjuntiva pink, sclera anicteric Pupils: Present: PERRL - Neck Neck exam general surgery: Present: supple, trachea midline - Respiratory Respiratory exam: Present: CTAB. Absent: accessory muscle use, rales, rhonchi, wheezes - Cardiovascular Cardiovascular exam: Present: RRR, +S1, +S2. Absent: diastolic murmur, gallop, rubs, systolic murmur - GI/Abdominal GI/Abdominal exam: Present: normal bowel sounds, soft, no peritoneal signs. Absent: distended, tenderness - Extremities Exam Extremities exam: Present: warm, radial pulses palpable and symmetrical. Absent : calf tenderness, cyanotic, pedal edema - Neurological Exam Neurological exam: Present: alert, oriented X3, no focal deficits. Absent: pronater drift, facial droop, speech deficit - Expanded Neurological Exam Neurological exam expanded: Present: tremor (mild, mostly in finger tips) Patient oriented to: Present: person, place, time Speech: Present: fluid speech Coma Scale Eye Opening: Spontaneous Coma Scale Motor Response: Obeys Commands Coma Scale Verbal Response: Oriented Coma Scale Total: 15 - Psychiatric Psychiatric exam: Present: normal affect, normal mood - Skin Skin exam: Present: dry, intact Internal Medicine: Result - Labs CBC & Chem 7: 12/28/17 12:25 12/31/17 06:12 Labs: BMP 12/31/17 06:12 Sodium 138 Potassium 3.6 Chloride 106 Carbon Dioxide 27 BUN 11 Creatinine 0.93 Glucose 137 H Calcium 8.5 L Consult Discharge Plan - Plan Referrals: Winifred Eddy, [employer] OPERATOR [Primary Care Provider] - 01/06/18 3:00 pm <KailaMarujuanl uis Mary - Last Filed: 12/31/17 17:19> Date of Encounter: 12/31/17 - Assessment and plan (1) COPD (chronic obstructive pulmonary disease) Current Visit: No Status: Acute (2) Alcohol abuse Current Visit: No Status: Acute (3) Alcohol withdrawal delirium Current Visit: Yes Status: Acute (4) PTSD (post-traumatic stress disorder) Current Visit: Yes Status: Chronic (5) Major depress dis, severe Current Visit: Yes Status: Chronic (6) CHRISTINE (generalized anxiety disorder) Current Visit: Yes Status: Chronic - Time Spent With Patient Total time spent is greater than 50% in coordination of care (as documented) at patient's floor/unit and/or counseling patient: - Constitutional Vitals: Temp Pulse Resp BP Pulse Ox 97.7 F 56 18 122/89 95 12/31/17 16:06 12/31/17 16:06 12/31/17 16:06 12/31/17 16:06 12/31/17 16:06 Internal Medicine: Result - Labs CBC & Chem 7: 12/28/17 12:25 12/31/17 06:12 Labs: BMP 12/31/17 06:12 Sodium 138 Potassium 3.6 Chloride 106 Carbon Dioxide 27 BUN 11 Creatinine 0.93 Glucose 137 H Calcium 8.5 L - Attending Attestation I examined this patient and my medical decision-making was reviewed with the Resident Physician. I agree with the documented findings, disposition and treatment plan as described except to the extent set forth below. Edi HERMOSILLO'adilia today. Patient not as agitated on my exam today. however he is still requiring Precedex. Plan is to transition off Precedex as tolerated. Will need to re-involve Psychiatry when patient successfully treated for withdrawal.
[2017-12-31] MEDS: *HR* LORazepam 2 MG/ML VIAL IVP PRN (12:37)
[2017-12-31] MEDS: Dexmedetomidine HCl 400 MCG/100 ML MLS IVC SCH (19:45)
[2017-12-31] MEDS ORDERED: 0.9 % Sodium Chloride 500 ML ONE (22:55)
[2018-01-01 04:29] LABS: BUN/Creatinine Ratio 14 (6-26); Blood Urea Nitrogen 12 mg/dL (6-20); Calcium 8.7 mg/dL (8.6-10.3); Carbon Dioxide 27 mEq/L (23-29); Chloride 105 mEq/L (98-107); Glucose 116 mg/dL (70-105); Osmolality,Calculated 287 (280-300); Potassium 3.8 mEq/L (3.5-5.1); Sodium 138 mEq/L (136-145); eGFR For African Americans > 60 (> 60); eGFR For Non-African Americans > 60 (> 60)
[2018-01-01] MEDS: *HR* Enoxaparin 40 MG/0.4 ML SYRINGE SQ SCH (06:03)
[2018-01-01] MEDS: risperiDONE 0.25 MG TABLET PO SCH ×3 (07:22→19:36)
[2018-01-01] MEDS: BuPROPion XL (24 HR) 150 MG TABLET PO SCH (07:22)
[2018-01-01] MEDS: Valproic Acid 250 MG CAPSULE PO SCH ×2 (07:22→17:25)
[2018-01-01] MEDS: Folic Acid 1 MG TABLET PO SCH (07:22)
[2018-01-01] MEDS: Multivit/Ca/Min/Fe/FA 1 TAB TABLET PO SCH (07:23)
[2018-01-01] MEDS: Dexmedetomidine HCl 400 MCG/100 ML MLS IVC SCH (07:36)
[2018-01-01] MEDS: Budesonide/Formoterol 160/4.5 MDI IH SCH ×2 (09:09→21:16)
--- NOTE | 2018-01-01 12:15 | Internal Med Progress Note ---
Date of Encounter: 01/01/18 Time of Encounter: 12:13 - Assessment and plan (1) Alcohol withdrawal delirium Current Visit: Yes Status: Acute Assessment and plan: Pt presented complaining of hearing chainsaws, seeing snakes and mice on admission. Pt continues on precedex, he was able to decrease amount yesterday but he needed titrated up today because of acute agitation Will start librium today and attempt to wean patient off Precedex again. (2) COPD (chronic obstructive pulmonary disease) Current Visit: No Status: Acute Assessment and plan: Not currently in exacerbation, continue home meds. (3) Alcohol abuse Current Visit: No Status: Acute Assessment and plan: Pt stated in ED that last drink was 6 days prior to admission. Hx of DTs after surgery at [facility]. Drinks about a 12 pack of beers daily x32 years. Has tried to quit in the past unsuccessfully. He is interested in quitting, does not want AA or counseling. Management per above plan (4) PTSD (post-traumatic stress disorder) Current Visit: Yes Status: Chronic Assessment and plan: Continue home meds, consider psych evaluation after medically stable from DTs. (5) Major depress dis, severe Current Visit: Yes Status: Chronic Assessment and plan: continue home meds (6) CHRISTINE (generalized anxiety disorder) Current Visit: Yes Status: Chronic Assessment and plan: continue home meds - Time Spent With Patient Total time spent is greater than 50% in coordination of care (as documented) at patient's floor/unit and/or counseling patient: - Subjective Interval history: Overnight he did display agitation and Precedex drip had to be increased This AM patient tells me he is still having hallucinations present at bedside. Has concerns would like an MRI for long history of trauma. Reviewed with her an MRI done 09/2017 with negative findings. - Constitutional Vitals: Temp Pulse Resp BP Pulse Ox 98.3 F 57 17 125/88 95 01/01/18 11:00 01/01/18 11:00 01/01/18 11:00 01/01/18 11:00 01/01/18 11:00 General appearance: Present: cooperative, A&O X 3, no acute distress, answers questions appropriately - Head Head exam: Present: atraumatic, normocephalic - Eye Eye exam: Present: PERRL, conjuntiva pink, sclera anicteric Pupils: Present: PERRL - Neck Neck exam general surgery: Present: supple, trachea midline. Absent: lymphadenopathy - Respiratory Respiratory exam: Present: CTAB. Absent: accessory muscle use, rales, rhonchi, wheezes - Cardiovascular Cardiovascular exam: Present: RRR, +S1, +S2. Absent: diastolic murmur, gallop, rubs, systolic murmur - GI/Abdominal GI/Abdominal exam: Present: normal bowel sounds, soft, no peritoneal signs. Absent: distended, tenderness - Extremities Exam Extremities exam: Present: warm, radial pulses palpable and symmetrical. Absent : calf tenderness, cyanotic, pedal edema - Neurological Exam Neurological exam: Present: CN II-XII intact, oriented X3, no focal deficits. Absent: pronater drift, facial droop, speech deficit - Psychiatric Psychiatric exam: Present: agitated. Absent: homicidal ideation, suicidal ideation Additional comments: Still states seeing snakes, mice, bugs. - Skin Skin exam: Present: dry, intact Internal Medicine: Result - Labs CBC & Chem 7: 12/28/17 12:25 01/01/18 03:53 Labs: [facility] 01/01/18 03:53 Sodium 138 Potassium 3.8 Chloride 105 Carbon Dioxide 27 BUN 12 Creatinine 0.87 Glucose 116 H Calcium 8.7 Consult Discharge Plan - Plan Referrals: Winifred Eddy CNP [Primary Care Provider] - 01/06/18 3:00 pm
--- NOTE | 2018-01-01 16:36 | Consult Note ---
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 Moeller is a 52 year old male The patient was interviewed he is not a reliable historian and was accompanied by a female laundry or dry cleaners counter clerk. Chief complaint I see black things on the grant are moving. History of present illness: The patient was actively hallucinating at the time that I saw him. He had an alcohol withdrawal delirium that is currently being treated. This includes Precedex and more recently Librium. Nonetheless the patient continues to have hallucinations and is distressed by these. These take the form of delusions, illusions and hallucinations. These are visual hallucinations of things like snakes and mice. They are also auditory hallucinations of a voice a chainsaw and someone breathing. Patient is stopped drinking alcohol and is currently undergoing detoxification. The time that he was examined he was disoriented to person place and time and could not use reminders to remember so his short-term memory was also significantly impaired. He could be reoriented but perseverated on several the wrong answers. The patient has a psychiatric history of post manic stress disorder from a traumatic event and he is on Paxil and risperidone bupropion was added he is on risperidone he is on amantadine. The patient says that he would like to stop drinking notes that he can do this in the Wednesday stop smoking. The past psychiatric history is significant for 14 days at the [facility] where he was placed under sedation for a prolonged period of withdrawal. We must presume that this is delirium tremens. The patient was able to give up drinking for 6 month period of time but gradually relapsed. CC: Analisa Null MD Past Med Surg Social Fam HX - Past Medical History Source: patient, obtained from family, other Medical history: GI bleed, other - Past Psychiatric History Psychiatric history: Reports: PTSD, other Family psychiatric history: Unknown Family History of Suicide: Unknown - Past Surgical History Surgical History: other - Social History Smoking Status: Former smoker Smokeless Tobacco Status: No Alcohol use: heavy Drug use: none Occupational status: retired Current living situation: Home - Independent Activity Level: Independent ambulation Recent Out of Country Travel Within the Last 8 Weeks: No Exposure or Possible Exposure to Illness During Travel: No - Family History Father Adopted: No Family Member Ethnicity: Non- Living Status: Still Living Hx Family Cardiac Disorders: Yes (pacer/defib,IL) Hx Family Respiratory Disorders: Yes (COPD) Hx Family Cancer: No Hx Family GI Disorders: No Hx Family Endocrine Disorder: Yes (DM) Hx Family Neuromuscular Disorders: No Hx Family Neurologic Disorders: No Hx Family HEENT Disorders: No Hx Family Autoimmune Disorders: No Medications & Allergies Albuterol Sulfate [Proair Hfa] 2 puff IH Q4-6H PRN 12/28/17 [History] Amantadine [Symmetrel] 100 mg PO BID 12/28/17 [History] BuPROPion XL (24 HR) [Wellbutrin XL] 300 mg PO DAILY 12/28/17 [History] Fluticasone/Salmeterol [Advair 500-50 Diskus] 1 puff IH BID 12/28/17 [History] Folic Acid 1 mg PO DAILY 12/28/17 [History] Multivit-Min/FA/Lycopen/Lutein [A Thru Z Select Multivit Tab] 1 tab PO DAILY 12/10 [History] PARoxetine HCl [Paroxetine HCl] 40 mg PO DAILY 12/28/17 [History] Pravastatin Sodium [Pravachol] 40 mg PO DAILY 12/28/17 [History] Propranolol [Inderal] 10 mg PO BID 12/28/17 [History] RisperiDONE [Risperdal] 0.5 mg PO TID 12/28/17 [History] Tamsulosin [Flomax] 0.4 mg PO DAILY 12/28/17 [History] Valproic Acid [Depakene] 250 mg PO QAM 12/28/17 [History] Valproic Acid [Depakene] 500 mg PO QPM 12/28/17 [History] risperiDONE [RisperDAL] 0.25 mg PO TID PRN 12/28/17 [History] 3 Allergy/AdvReac Type Severity Reaction Status Date / Time Cyclobenzaprine AdvReac See Verified 12/28/17 11:53 [From Flexeril] Comments Review of Systems Psychiatric: Reports: abnormal sleep pattern, auditory hallucinations, visual hallucinations Psychiatry Exam - Constitutional Vitals: Temp Pulse Resp BP Pulse Ox 97.3 F L 51 18 137/92 97 01/01/18 15:44 01/01/18 15:44 01/01/18 15:44 01/01/18 15:44 01/01/18 15:44 General appearance: age & developmentally appropriate, disheveled, average - Musculoskeletal Station: shaky Strength & Tone: mild weakness - Psychiatric Patient Orientation: Yes Person, Yes Place Level of alertness: Alert Behavior: nervous, talkative Psychomotor activity: Increased Eye Contact: Maintains Eye Contact Mood Description: Anxious Affect description: anxious Speech Volume: Normal Speech pattern: normal tone Language & Vocabulary: consistent with education Thought Process: Intact, Tangential, Perseveration Perceptual Disturbances: Yes Auditory hallucinations, Yes Visual hallucinations , Yes Illusions Attention Span Ability: Unable to Sustain Attention Memory Description: Immediate Impaired, Recent Impaired, Remote Impaired Patient Reliability: Questionable Historian Fund of knowledge: Yes average Intelligence Estimate: Average Judgment: Poor Insight: None Results - Labs Labs: Laboratory Last Values WBC 6.2 K/mcL (4.3-11.1) 12/28/17 12:25 RBC 4.71 M/mcL (4.19-5.50) 12/28/17 12:25 Hgb 14.8 g/dL (12.9-16.9) 12/28/17 12:25 Hct 43.1 % (37.5-50.1) 12/28/17 12:25 MCV 91.5 fL (83.0-100.0) 12/28/17 12:25 MCH 31.4 pg (28.0-33.3) 12/28/17 12:25 MCHC 34.3 g/dL (31.6-35.5) 12/28/17 12:25 RDW 12.9 % (11.5-14.5) 12/28/17 12:25 Plt Count 143 K/mcL (140-400) 12/28/17 12:25 MPV 12.2 fL (9.4-12.4) 12/28/17 12:25 Immature Gran % 0.5 % (0-4) 12/28/17 12:25 Seg Neutrophils % 44.7 % 12/28/17 12:25 Lymphocytes % 38.7 % 12/28/17 12:25 Monocytes % 14.5 % 12/28/17 12:25 Eosinophils % 1.0 % 12/28/17 12:25 Basophils % 0.6 % 12/28/17 12:25 Neutrophils # 2.8 K/mcL (1.6-8.9) 12/28/17 12:25 Lymphocytes # 2.4 K/mcL (0.6-4.6) 12/28/17 12:25 Monocytes # 0.9 K/mcL (0.0-1.3) 12/28/17 12:25 Eosinophils # 0.1 K/mcL (0.0-0.6) 12/28/17 12:25 Basophils # 0.0 K/mcL (0.0-0.2) 12/28/17 12:25 Sodium 138 mEq/L (136-145) 01/01/18 03:53 Potassium 3.8 mEq/L (3.5-5.1) 01/01/18 03:53 Chloride 105 mEq/L (98-107) 01/01/18 03:53 Carbon Dioxide 27 mEq/L (23-29) 01/01/18 03:53 BUN 12 mg/dL (6-20) 01/01/18 03:53 Creatinine 0.87 mg/dL (0.70-1.30) 01/01/18 03:53 Est GFR ( Amer) > 60 (> 60) 01/01/18 03:53 Est GFR (Non-Af Amer) > 60 (> 60) 01/01/18 03:53 BUN/Creatinine Ratio 14 (6-26) 01/01/18 03:53 Glucose 116 mg/dL (70-105) H 01/01/18 03:53 Calculated Osmolality 287 (280-300) 01/01/18 03:53 Calcium 8.7 mg/dL (8.6-10.3) 01/01/18 03:53 Phosphorus 3.7 mg/dL (2.7-4.5) 12/28/17 20:07 Magnesium 2.2 mg/dL (1.6-2.6) 12/28/17 20:07 Total Bilirubin 0.7 mg/dL (0.3-1.0) 12/28/17 12:25 Direct Bilirubin 0.2 mg/dL (0.0-0.2) 12/28/17 12:25 Indirect Bilirubin 0.5 mg/dL (0.0-1.2) 12/28/17 12:25 AST 17 Units/L (13-39) 12/28/17 12:25 ALT 21 Units/L (7-52) 12/28/17 12:25 Alkaline Phosphatase 82 Units/L (34-104) 12/28/17 12:25 Ammonia 48 mcmol/L (16-53) 12/28/17 12:25 Serum Total Protein 7.2 g/dL (6.4-8.9) 12/28/17 12:25 Albumin 4.9 g/dL (3.5-5.7) 12/28/17 12:25 Globulin 2.3 g/dL (2.4-3.5) L 12/28/17 12:25 Albumin/Globulin Ratio 2.1 (1.1-2.2) 12/28/17 12:25 Urine Color Yellow (Yellow) 12/28/17 12:29 Urine Clarity Clear (Clear) 12/28/17 12:29 Urine pH 6.5 pH Units (5.0-8.0) 12/28/17 12:29 Ur Specific Omer 1.018 (1.010-1.025) 12/28/17 12:29 Urine Protein Negative mg/dL (Neg-Trace) 12/28/17 12:29 Urine Glucose (UA) Normal mg/dL (Normal) 12/28/17 12:29 Urine Ketones Trace mg/dL (Negative) H 12/28/17 12:29 Urine Blood Negative (Negative) 12/28/17 12:29 Urine Nitrite Negative (Negative) 12/28/17 12:29 Urine Bilirubin Negative (Negative) 12/28/17 12:29 Urine Urobilinogen Normal mg/dL (Normal) 12/28/17 12:29 Ur Leukocyte Esterase Negative (Negative) 12/28/17 12:29 Salicylates < 2.5 mg/dL (15.0-30.0) L 12/28/17 12:25 Urine Opiates Screen Negative ng/mL (Quugli=536) 12/28/17 12:46 Acetaminophen < 10 mcg/mL (10-20) L 12/28/17 12:25 Ur Barbiturates Screen Negative ng/mL (Maiecd=069) 12/28/17 12:46 Valproic Acid 68 mcg/mL (50-100) 12/28/17 12:25 Ur Phencyclidine Scrn Negative ng/mL (Cutoff=25) 12/28/17 12:46 Ur Amphetamines Screen Negative ng/mL (Egoszl=1503) 12/28/17 12:46 U Benzodiazepines Scrn Negative ng/mL (Ilymyl=027) 12/28/17 12:46 Urine Cocaine Screen Negative ng/mL (Cutoff= 300) 12/28/17 12:46 U Marijuana (THC) Screen Negative ng/mL (Cutoff = 50) 12/28/17 12:46 Ethyl Alcohol < 10 mg/dL (Less than 10) 12/28/17 12:25 Consult Discharge Plan - Plan Referrals: Winifred Eddy CNP [Primary Care Provider] - 01/06/18 3:00 pm
[2018-01-02] MEDS ORDERED: 0.9 % Sodium Chloride 500 ML ONE (00:03)
[2018-01-02] MEDS: Dexmedetomidine HCl 400 MCG/100 ML MLS IVC SCH (03:32)
[2018-01-02 04:16] LABS: BUN/Creatinine Ratio 9 (6-26); Blood Urea Nitrogen 8 mg/dL (6-20); Carbon Dioxide 29 mEq/L (23-29); Chloride 104 mEq/L (98-107); Glucose 121 mg/dL (70-105); Osmolality,Calculated 288 (280-300); Potassium 3.9 mEq/L (3.5-5.1); Sodium 139 mEq/L (136-145); eGFR For African Americans > 60 (> 60); eGFR For Non-African Americans > 60 (> 60)
[2018-01-02] MEDS: *HR* Enoxaparin 40 MG/0.4 ML SYRINGE SQ SCH (05:14)
[2018-01-02] MEDS: Valproic Acid 250 MG CAPSULE PO SCH ×2 (07:54→16:35)
[2018-01-02] MEDS: Folic Acid 1 MG TABLET PO SCH (07:54)
[2018-01-02] MEDS: risperiDONE 0.25 MG TABLET PO SCH ×3 (07:54→19:34)
[2018-01-02] MEDS: Multivit/Ca/Min/Fe/FA 1 TAB TABLET PO SCH (07:55)
[2018-01-02] MEDS: Budesonide/Formoterol 160/4.5 MDI IH SCH ×2 (10:06→20:02)
[2018-01-02] MEDS ORDERED: Ringers Solution, Lactated 1,000 ML IVC ONE (14:10)
--- NOTE | 2018-01-02 14:20 | Internal Med Progress Note ---
Date of Encounter: 01/02/18 Time of Encounter: 14:17 - Assessment and plan (1) Alcohol withdrawal delirium Current Visit: Yes Status: Acute Assessment and plan: Today taken off Precedex drip Librium continued but will hold upcoming dose because of hypotension. Give 1 L IV fluids. Per Psychiatry recommendations, will stop amantadine and buproprion as these can precipitate visual hallucinations. CIWA scores improved. (2) COPD (chronic obstructive pulmonary disease) Current Visit: No Status: Acute Assessment and plan: Not currently in exacerbation, continue home meds. (3) Alcohol abuse Current Visit: No Status: Acute Assessment and plan: Pt stated in ED that last drink was 6 days prior to admission. Hx of DTs after surgery at [facility]. Drinks about a 12 pack of beers daily x32 years. Has tried to quit in the past unsuccessfully. He is interested in quitting, does not want AA or counseling. Management per above plan (4) PTSD (post-traumatic stress disorder) Current Visit: Yes Status: Chronic Assessment and plan: Continue home meds, consider psych evaluation after medically stable from DTs. (5) Major depress dis, severe Current Visit: Yes Status: Chronic Assessment and plan: continue home meds (6) CHRISTINE (generalized anxiety disorder) Current Visit: Yes Status: Chronic Assessment and plan: continue home meds - Time Spent With Patient Total time spent is greater than 50% in coordination of care (as documented) at patient's floor/unit and/or counseling patient: - Subjective Interval history: and mother present at bedside Precedex drip tapered off today Continuing Librium dose Hold upcoming Librium dose because of hypotension and recheck BP after 1 L bolus. - Constitutional Vitals: Temp Pulse Resp BP Pulse Ox 97.8 F 66 17 92/60 95 01/02/18 11:22 01/02/18 12:00 01/02/18 12:00 01/02/18 12:00 01/02/18 12:00 General appearance: Present: cooperative, A&O X 3, no acute distress, answers questions appropriately - Head Head exam: Present: atraumatic, normocephalic - Eye Eye exam: Present: PERRL, conjuntiva pink, sclera anicteric Pupils: Present: PERRL - Neck Neck exam general surgery: Present: supple, trachea midline. Absent: lymphadenopathy - Respiratory Respiratory exam: Present: CTAB. Absent: accessory muscle use, rales, rhonchi, wheezes - Cardiovascular Cardiovascular exam: Present: RRR, +S1, +S2. Absent: diastolic murmur, gallop, rubs, systolic murmur - GI/Abdominal GI/Abdominal exam: Present: normal bowel sounds, soft, no peritoneal signs. Absent: distended, tenderness - Extremities Exam Extremities exam: Present: warm, radial pulses palpable and symmetrical. Absent : calf tenderness, cyanotic, pedal edema - Neurological Exam Neurological exam: Present: CN II-XII intact, oriented X3, no focal deficits. Absent: pronater drift, facial droop, speech deficit - Skin Skin exam: Present: dry, intact Internal Medicine: Result - Labs CBC & Chem 7: 12/28/17 12:25 01/02/18 03:45 Labs: BMP 01/02/18 03:45 Sodium 139 Potassium 3.9 Chloride 104 Carbon Dioxide 29 BUN 8 Creatinine 0.88 Glucose 121 H Calcium 9.0 Consult Discharge Plan - Plan Referrals: Winifred Eddy CNP [Primary Care Provider] - 01/06/18 3:00 pm
[2018-01-03 05:09] LABS: BUN/Creatinine Ratio 12 (6-26); Blood Urea Nitrogen 12 mg/dL (6-20); Calcium 8.7 mg/dL (8.6-10.3); Carbon Dioxide 23 mEq/L (23-29); Chloride 110 mEq/L (98-107); Glucose 101 mg/dL (70-105); Osmolality,Calculated 294 (280-300); Potassium 5.5 mEq/L (3.5-5.1); Sodium 142 mEq/L (136-145); eGFR For African Americans > 60 (> 60); eGFR For Non-African Americans > 60 (> 60)
[2018-01-03] MEDS: *HR* Enoxaparin 40 MG/0.4 ML SYRINGE SQ SCH (06:15)
[2018-01-03] MEDS: Budesonide/Formoterol 160/4.5 MDI IH SCH ×2 (07:58→20:03)
[2018-01-03] MEDS: Folic Acid 1 MG TABLET PO SCH (08:02)
[2018-01-03] MEDS: Multivit/Ca/Min/Fe/FA 1 TAB TABLET PO SCH (08:02)
[2018-01-03] MEDS: Valproic Acid 250 MG CAPSULE PO SCH ×2 (08:02→17:06)
[2018-01-03] MEDS: risperiDONE 0.25 MG TABLET PO SCH ×3 (08:53→20:16)
--- NOTE | 2018-01-03 09:36 | Internal Med Progress Note ---
<Loren Hagen - Last Filed: 01/03/18 17:15> Date of Encounter: 01/03/18 Time of Encounter: 09:34 - Assessment and plan (1) Alcohol withdrawal delirium Current Visit: Yes Status: Acute Assessment and plan: Pt remains off Precedex drip Per Psychiatry recommendations have stopped amantadine and buproprion as these can precipitate visual hallucinations. Pt admits to continued auditory and visual hallucinations. CIWA scores improved and pt is improving overall. Still experiencing visual and auditory hallucinations, although they have improved in severity. Plan: Continue CIWA protocol Continue librium Ativan per CIWA protocol Continue risperidone, valproic Acid, paxil (2) Alcohol abuse Current Visit: No Status: Acute Assessment and plan: Pt stated in ED that last drink was 6 days prior to admission. Hx of DTs after surgery at [facility]. Drinks about a 12 pack of beers daily x32 years. Has tried to quit in the past unsuccessfully. He is interested in quitting, does not want AA or counseling. Management per above plan (3) COPD (chronic obstructive pulmonary disease) Current Visit: No Status: Acute Assessment and plan: Not currently in exacerbation, continue home meds. Qualifiers: COPD type: emphysema Emphysema type: unspecified Qualified Code(s): J43.9 - Emphysema, unspecified (4) PTSD (post-traumatic stress disorder) Current Visit: Yes Status: Chronic (5) Major depress dis, severe Current Visit: Yes Status: Chronic (6) CHRISTINE (generalized anxiety disorder) Current Visit: Yes Status: Chronic - Time Spent With Patient Total time spent is greater than 50% in coordination of care (as documented) at patient's floor/unit and/or counseling patient: - Subjective Interval history: Patient seen and examined. He is sitting up in bed. He notes that he is having auditory hallucinations-- states that it sounds like someone else is in his room breathing noisily. He admits to visual hallucinations as well, states that he is seeing mice in the room. It makes him a little anxious because he does not want to have them crawling all over him. He states that he just wants to be safe when he goes home and not to be seeing these things. He states that he has mild SOB, but nothing worse than his normal. He denies CP, abdominal pain, n/v/d , dizziness, double vision or blurry vision. - Constitutional Vitals: Temp Pulse Resp BP Pulse Ox 97.9 F 72 16 123/83 98 01/03/18 07:27 01/03/18 08:12 01/03/18 07:58 01/03/18 07:27 01/03/18 07:58 General appearance: Present: cooperative, A&O X 3, no acute distress, answers questions appropriately - Head Head exam: Present: atraumatic, normocephalic - Eye Eye exam: Present: EOMI, PERRL, conjuntiva pink. Absent: nystagmus - ENT ENT exam: Present: mucous membranes moist - Neck Neck exam general surgery: Present: supple, trachea midline. Absent: lymphadenopathy - Respiratory Respiratory exam: Present: CTAB. Absent: accessory muscle use, rales, rhonchi, wheezes - Cardiovascular Cardiovascular exam: Present: RRR, +S1, +S2. Absent: diastolic murmur, gallop, rubs, systolic murmur - GI/Abdominal GI/Abdominal exam: Present: normal bowel sounds, soft, no peritoneal signs. Absent: distended, tenderness - Extremities Exam Extremities exam: Present: warm, radial pulses palpable and symmetrical. Absent : calf tenderness, cyanotic, pedal edema - Neurological Exam Neurological exam: Present: alert, oriented X3. Absent: motor sensory deficit, facial droop, speech deficit - Expanded Neurological Exam Neurological exam expanded: Present: tremor (b/l hands when held in front of him. No resting tremor) Coma Scale Eye Opening: Spontaneous Coma Scale Motor Response: Obeys Commands Coma Scale Verbal Response: Oriented Coma Scale Total: 15 - Psychiatric Psychiatric exam: Present: anxious, normal affect - Skin Skin exam: Present: dry, intact, normal color, warm Internal Medicine: Result - Labs CBC & Chem 7: 12/28/17 12:25 01/03/18 08:24 Labs: BMP 01/03/18 01/03/18 04:32 08:24 Sodium 142 Potassium 5.5 H 3.6 D Chloride 110 H Carbon Dioxide 23 BUN 12 Creatinine 1.00 Glucose 101 Calcium 8.7 Consult Discharge Plan - Plan Referrals: Winifred Eddy, J[employer]IOR H[employer]OL TE[employer]ER [Primary Care Provider] - 01/06/18 3:00 pm <Dav Bright - Last Filed: 01/03/18 19:06> Date of Encounter: 01/03/18 - Assessment and plan (1) COPD (chronic obstructive pulmonary disease) Current Visit: No Status: Acute (2) Alcohol abuse Current Visit: No Status: Acute (3) Alcohol withdrawal delirium Current Visit: Yes Status: Acute (4) PTSD (post-traumatic stress disorder) Current Visit: Yes Status: Chronic (5) Major depress dis, severe Current Visit: Yes Status: Chronic (6) CHRISTINE (generalized anxiety disorder) Current Visit: Yes Status: Chronic - Time Spent With Patient Total time spent is greater than 50% in coordination of care (as documented) at patient's floor/unit and/or counseling patient: - Constitutional Vitals: Temp Pulse Resp BP Pulse Ox 98.6 F 67 20 131/88 96 01/03/18 16:27 01/03/18 16:27 01/03/18 16:27 01/03/18 16:27 01/03/18 16:27 Internal Medicine: Result - Labs CBC & Chem 7: 12/28/17 12:25 01/03/18 08:24 Labs: BMP 01/03/18 01/03/18 04:32 08:24 Sodium 142 Potassium 5.5 H 3.6 D Chloride 110 H Carbon Dioxide 23 BUN 12 Creatinine 1.00 Glucose 101 Calcium 8.7 - Attending Attestation I examined this patient and my medical decision-making was reviewed with the Resident Physician. I agree with the documented findings, disposition and treatment plan as described except to the extent set forth below.
[2018-01-04 05:02] LABS: BUN/Creatinine Ratio 10 (6-26); Blood Urea Nitrogen 9 mg/dL (6-20); Carbon Dioxide 27 mEq/L (23-29); Chloride 108 mEq/L (98-107); Glucose 121 mg/dL (70-105); Osmolality,Calculated 298 (280-300); Potassium 3.4 mEq/L (3.5-5.1); Sodium 144 mEq/L (136-145); eGFR For African Americans > 60 (> 60); eGFR For Non-African Americans > 60 (> 60)
[2018-01-04] MEDS: *HR* Enoxaparin 40 MG/0.4 ML SYRINGE SQ SCH (05:25)
[2018-01-04 07:24] VITALS: BP 123/83
[2018-01-04] MEDS: Multivit/Ca/Min/Fe/FA 1 TAB TABLET PO SCH (07:57)
[2018-01-04] MEDS: Valproic Acid 250 MG CAPSULE PO SCH (07:57)
[2018-01-04] MEDS: Folic Acid 1 MG TABLET PO SCH (07:57)
[2018-01-04] MEDS: risperiDONE 0.25 MG TABLET PO SCH (07:57)
--- NOTE | 2018-01-04 10:43 | Discharge Summary ---
- NOTES TO OUTPATIENT PROVIDER Notes to Outpatient Provider: Patient was admitted here for alcohol withdrawal delirium. He was treated per [facility] protocol. His symptoms have now improved and he is stable to go home at this time. Patient has a history of seizures and takes valproic acid. Date of Encounter: 01/04/18 Time of Encounter: 10:41 - Discharge Diagnosis (1) Alcohol withdrawal delirium Priority: Primary Status: Acute (2) COPD (chronic obstructive pulmonary disease) Priority: Secondary Status: Acute Qualifiers: COPD type: emphysema Emphysema type: unspecified Qualified Code(s): J43.9 - Emphysema, unspecified (3) Alcohol abuse Priority: Secondary Status: Chronic (4) PTSD (post-traumatic stress disorder) Priority: Secondary Status: Chronic (5) Major depress dis, severe Priority: Secondary Status: Chronic (6) CHRISTINE (generalized anxiety disorder) Priority: Secondary Status: Chronic Hospital course: Mr. Moeller is a 52 year old male patient with history of alcohol abuse who was hospitalized here with alcohol withdrawal symptoms. He also has history of COPD , hepatitis. Patient had been hallucinating prior to presentation. He was treated per [facility] protocol. He received Librium and Ativan along with IV fluids , thiamine, folic acid supplements. His symptoms have now resolved. He does have some tremors but his anxiety, hallucinations have now resolved. He feels much better and wishes to go home. He will be discharged today. He has been provided with information about resources to get help with alcohol cessation. Discharge discussed with: patient, nurse - Time Spent with Patient Total time spent providing and/or coordinating discharge services: Less than 30 minutes (25 min) - Discharge Medications Home Medications: Albuterol Sulfate [Proair Hfa] 2 puff IH Q4-6H PRN 12/28/17 [History] Amantadine [Symmetrel] 100 mg PO BID 12/28/17 [History] BuPROPion XL (24 HR) [Wellbutrin Xl] 300 mg PO DAILY 12/28/17 [History] Fluticasone/Salmeterol [Advair 500-50 Diskus] 1 puff IH BID 12/28/17 [History] Folic Acid 1 mg PO DAILY 12/28/17 [History] Multivit-Min/FA/Lycopen/Lutein [A Thru Z Select Multivit Tab] 1 tab PO DAILY 12/10 [History] PARoxetine HCl [Paroxetine HCl] 40 mg PO DAILY 12/28/17 [History] Pravastatin Sodium [Pravachol] 40 mg PO DAILY 12/28/17 [History] Propranolol [Inderal] 10 mg PO BID 12/28/17 [History] RisperiDONE [Risperdal] 0.5 mg PO TID 12/28/17 [History] Tamsulosin [Flomax] 0.4 mg PO DAILY 12/28/17 [History] Valproic Acid [Depakene] 250 mg PO QAM 12/28/17 [History] Valproic Acid [Depakene] 500 mg PO QPM 12/28/17 [History] Allergies/Adverse Reactions: 3 Allergy/AdvReac Type Severity Reaction Status Date / Time Cyclobenzaprine AdvReac See Verified 12/28/17 11:53 [From Flexeril] Comments Date of admission: 12/28/17 20:08 Primary care physician: Winifred Eddy CNP Consults: 12/28/17 21:20 Consult to Retail Helper [CONS] Routine Reason for SW Consult: Possible need to place for alcoholism 12/31/17 14:52 Consult to Psychiatry [CONS] Routine Consulting Provider: Psychiatry Majo Reason for Consult: hallucinations Time Notified: 14:53 Call Completed: No Discharging clinician: Lexi Kilpatrick Anticipated date of discharge: 01/04/18 - Constitutional Vitals: Temp Pulse Resp BP Pulse Ox 98.1 F 73 17 123/83 90 01/04/18 07:22 01/04/18 07:22 01/04/18 07:22 01/04/18 07:22 01/04/18 07:22 General appearance: Present: cooperative, A&O X 3, no acute distress, answers questions appropriately - Respiratory Respiratory exam: Present: CTAB. Absent: accessory muscle use, rales, rhonchi, wheezes - Cardiovascular Cardiovascular exam: Present: RRR, +S1, +S2. Absent: diastolic murmur, gallop, rubs, systolic murmur - GI/Abdominal GI/Abdominal exam: Present: normal bowel sounds, soft, no peritoneal signs. Absent: distended, tenderness - Extremities Exam Extremities exam: Present: warm, radial pulses palpable and symmetrical. Absent : calf tenderness, cyanotic, pedal edema - Neurological Exam Neurological exam: Present: alert, oriented X3, no focal deficits. Absent: facial droop, speech deficit Additional comments: tremors present - Skin Skin exam: Present: dry, intact - Patient Status Disposition: Home, Self-Care Condition: Good Functional capacity at discharge: independent ambulation Overall status at discharge: patient is back to baseline - Discharge Instructions Instructions: Abuse of Alcohol (DC), Acute Delirium (DC), Alcohol Withdrawal ( DC) Follow Up With: Winifred Eddy, CLAIM REP [Primary Care Provider] - 01/11/18 9:00 am - Diet and Activity Activity: increase activity as tolerated Diet: low fat, low cholesterol, low salt diet
[2018-01-04] MEDS: Budesonide/Formoterol 160/4.5 MDI IH SCH (11:04)
== END 2018-01-04 11:22 | disposition home or self-care (01) | DRG 897 ==
LOC: 2NNU 11:48 → EMEROO 11:48 → SUATTDRO 20:08 → 2NNU 20:50
PROVIDERS: ADMIT Internal Medicine Cardiovascular Disease; ATTEND Internal Medicine

== ENCOUNTER 2018-01-07 20:48 | Observation (INO) ==
[2018-01-07] MEDS ORDERED: 0.9 % Sodium Chloride 1,000 ML IVC ONE ×2 (21:07→23:07)
[2018-01-07 21:32] LABS: Bilirubin,Urine Negative (Negative); Blood,Urine Trace (Negative); Clarity,Urine Clear (Clear); Color,Urine Yellow (Yellow); Glucose,Urine (UA) Normal (Normal); Ketones,Urine Negative (Negative); Leukocyte Esterase,Urine Large (Negative); Nitrite,Urine Positive (Negative); Protein,Urine Negative (Neg-Trace); Specific Gravity,Urine 1.005 (1.010-1.025); Urobilinogen,Urine Normal (Normal)
[2018-01-07 21:34] LABS: Bacteria,Urine None Seen per hpf (None-Few); Hyaline Casts,Urine None Seen per lpf (None-Few); RBC,Urine 0-3 per hpf (0-3); Squamous Epithelial Cell,Urine Few per lpf (None-Few); WBC,Urine 30-50 per hpf (0-3)
[2018-01-07 21:35] LABS: Basophils % 0.3 %; Eosinophils # 0.2 K/mcL (0.0-0.6); Eosinophils % 1.6 %; Hematocrit 41.1 % (37.5-50.1); Hemoglobin 13.7 g/dL (12.9-16.9); Immature Granulocytes % 0.3 % (0-4); Lymphocytes % 20.2 %; Mean Corpuscular HGB Conc 33.3 g/dL (31.6-35.5); Mean Corpuscular Hemoglobin 31.8 pg (28.0-33.3); Mean Corpuscular Volume 95.4 fL (83.0-100.0); Mean Platelet Volume 11.6 fL (9.4-12.4); Monocytes # 1.1 K/mcL (0.0-1.3); Monocytes % 11.4 %; Neutrophils # 6.5 K/mcL (1.6-8.9); Platelet Count 143 K/mcL (140-400); Red Blood Count 4.31 M/mcL (4.19-5.50); Red Cell Distribution Width 13.3 % (11.5-14.5); Segmented Neutrophils % 66.2 %
[2018-01-07 21:54] LABS: Alanine Aminotransferase 19 Units/L (7-52); Albumin 4.2 g/dL (3.5-5.7); Albumin/Globulin Ratio 1.7 (1.1-2.2); Alkaline Phosphatase 70 Units/L (34-104); Aspartate Amino Transferase 17 Units/L (13-39); BUN/Creatinine Ratio 8 (6-26); Bilirubin,Direct 0.1 mg/dL (0.0-0.2); Bilirubin,Indirect 0.3 mg/dL (0.0-1.2); Bilirubin,Total 0.4 mg/dL (0.3-1.0); Blood Urea Nitrogen 8 mg/dL (6-20); Calcium 9.3 mg/dL (8.6-10.3); Carbon Dioxide 24 mEq/L (23-29); Chloride 104 mEq/L (98-107); Globulin 2.5 g/dL (2.4-3.5); Glucose 122 mg/dL (70-105); Lipase 21 Units/L (11-82); Osmolality,Calculated 290 (280-300); Potassium 3.6 mEq/L (3.5-5.1); Sodium 140 mEq/L (136-145); Total Protein 6.7 g/dL (6.4-8.9); Troponin I < 0.03 ng/mL (< 0.04); eGFR For African Americans > 60 (> 60); eGFR For Non-African Americans > 60 (> 60)
--- NOTE | 2018-01-07 22:22 | Emergency Department Note ---
Disposition Clinical Impression: Leg pain, Thiamine deficiency, Ataxic gait Disposition: Admitted As Inpatient Condition: Fair Referrals: Winifred Eddy, COMMUNITY SPORTS COORDINATOR [Primary Care Provider] - Forms: ED Satisfaction Letter Time of Disposition: 23:08 General Adult HPI - General Chief complaint: ED Extremity Problem,Nontraumatic Stated complaint: Swelling Time Seen by Provider: 01/07/18 21:03 Source: patient, EMS Limitations: no limitations - History of Present Illness Pain Scale: 0 - Related Data Home Medications Medication Instructions Recorded Confirmed Albuterol Sulfate [Proair Hfa] 2 puff IH Q4-6H PRN 12/28/17 12/28/17 Amantadine [Symmetrel] 100 mg PO BID 12/28/17 12/28/17 BuPROPion XL (24 HR) [Wellbutrin 300 mg PO DAILY 12/28/17 12/28/17 Xl] Fluticasone/Salmeterol [Advair 1 puff IH BID 12/28/17 12/28/17 500-50 Diskus] Folic Acid 1 mg PO DAILY 12/28/17 12/28/17 Multivit-Min/FA/Lycopen/Lutein [A 1 tab PO DAILY 12/28/17 12/28/17 Thru Z Select Multivit Tab] PARoxetine HCl [Paroxetine HCl] 40 mg PO DAILY 12/28/17 12/28/17 Pravastatin Sodium [Pravachol] 40 mg PO DAILY 12/28/17 12/28/17 Propranolol [Inderal] 10 mg PO BID 12/28/17 12/28/17 RisperiDONE [Risperdal] 0.5 mg PO TID 12/28/17 12/28/17 Tamsulosin [Flomax] 0.4 mg PO DAILY 12/28/17 12/28/17 Valproic Acid [Depakene] 250 mg PO QAM 12/28/17 12/28/17 Valproic Acid [Depakene] 500 mg PO QPM 12/28/17 12/28/17 Allergies Allergy/AdvReac Type Severity Reaction Status Date / Time Cyclobenzaprine AdvReac See Verified 12/28/17 11:53 [From Flexeril] Comments Past Medical History - Past Medical History Medical history: Reports: cirrhosis, GI bleed, other Surgical history: Reports: other Psychiatric history: Reports: PTSD, other - Social History Smoking Status: Former smoker Smokeless Tobacco Status: No Alcohol use: Reports: heavy Drug use: Reports: none Physical Exam - General Limitations: no limitations General appearance: alert Course Vital Signs Temperature 98.7 F 01/07/18 21:01 Pulse Rate 82 01/07/18 21:01 Respiratory Rate 18 01/07/18 21:01 Blood Pressure 115/83 01/07/18 21:01 O2 Sat by Pulse Oximetry 96 01/07/18 21:01 Temperature 98.7 F 01/07/18 21:01 Pulse Rate 75 01/07/18 22:37 Respiratory Rate 18 01/07/18 22:37 Blood Pressure 126/84 01/07/18 22:37 O2 Sat by Pulse Oximetry 98 01/07/18 22:37 Oxygen Delivery Oxygen Delivery Room Air Medical Decision Making - Lab Data Result diagrams: 01/07/18 21:20 01/07/18 21:20 Lab Results 01/07/18 01/07/18 01/07/18 Range/Units 21:20 21:20 21:24 WBC 9.9 (4.3-11.1) K/mcL RBC 4.31 (4.19-5.50) M/mcL Hgb 13.7 (12.9-16.9) g/dL Hct 41.1 (37.5-50.1) % MCV 95.4 (83.0-100.0) fL MCH 31.8 (28.0-33.3) pg MCHC 33.3 (31.6-35.5) g/dL RDW 13.3 (11.5-14.5) % Plt Count 143 (140-400) K/mcL MPV 11.6 (9.4-12.4) fL Immature Gran % 0.3 (0-4) % Seg Neutrophils % 66.2 % Lymphocytes % 20.2 % Monocytes % 11.4 % Eosinophils % 1.6 % Basophils % 0.3 % Neutrophils # 6.5 (1.6-8.9) K/mcL Lymphocytes # 2.0 (0.6-4.6) K/mcL Monocytes # 1.1 (0.0-1.3) K/mcL Eosinophils # 0.2 (0.0-0.6) K/mcL Basophils # 0.0 (0.0-0.2) K/mcL Sodium 140 (136-145) mEq/L Potassium 3.6 (3.5-5.1) mEq/L Chloride 104 (98-107) mEq/L Carbon Dioxide 24 (23-29) mEq/L BUN 8 (6-20) mg/dL Creatinine 1.02 (0.70-1.30) mg/dL Est GFR ( Amer) > 60 (> 60) Est GFR (Non-Af Amer) > 60 (> 60) BUN/Creatinine Ratio 8 (6-26) Glucose 122 H (70-105) mg/dL Calculated Osmolality 290 (280-300) Lactic Acid (0.5-2.2) mmol/L Calcium 9.3 (8.6-10.3) mg/dL Total Bilirubin 0.4 (0.3-1.0) mg/dL Direct Bilirubin 0.1 (0.0-0.2) mg/dL Indirect Bilirubin 0.3 (0.0-1.2) mg/dL AST 17 (13-39) Units/L ALT 19 (7-52) Units/L Alkaline Phosphatase 70 (34-104) Units/L Creatine Kinase 417 H (30-223) Units/L Troponin I < 0.03 (< 0.04) ng/mL Serum Total Protein 6.7 (6.4-8.9) g/dL Albumin 4.2 (3.5-5.7) g/dL Globulin 2.5 (2.4-3.5) g/dL Albumin/Globulin Ratio 1.7 (1.1-2.2) Lipase 21 (11-82) Units/L Urine Color Yellow (Yellow) Urine Clarity Clear (Clear) Urine pH 7.0 (5.0-8.0) pH Units Ur Specific Constantine 1.005 L (1.010-1.025) Urine Protein Negative (Neg-Trace) mg/dL Urine Glucose (UA) Normal (Normal) mg/dL Urine Ketones Negative (Negative) mg/dL Urine Blood Trace H (Negative) Urine Nitrite Positive A (Negative) Urine Bilirubin Negative (Negative) Urine Urobilinogen Normal (Normal) mg/dL Ur Leukocyte Esterase Large H (Negative) Urine Microscopic RBC 0-3 (0-3) per hpf Urine Microscopic WBC 30-50 H (0-3) per hpf Ur Squamous Epith Cells Few (None-Few) per lpf Urine Bacteria None Seen (None-Few) per hpf Hyaline Casts None Seen (None-Few) per lpf Ur Culture Indicated? YES A (NO) 01/07/18 Range/Units 21:56 WBC (4.3-11.1) K/mcL RBC (4.19-5.50) M/mcL Hgb (12.9-16.9) g/dL Hct (37.5-50.1) % MCV (83.0-100.0) fL MCH (28.0-33.3) pg MCHC (31.6-35.5) g/dL RDW (11.5-14.5) % Plt Count (140-400) K/mcL MPV (9.4-12.4) fL Immature Gran % (0-4) % Seg Neutrophils % % Lymphocytes % % Monocytes % % Eosinophils % % Basophils % % Neutrophils # (1.6-8.9) K/mcL Lymphocytes # (0.6-4.6) K/mcL Monocytes # (0.0-1.3) K/mcL Eosinophils # (0.0-0.6) K/mcL Basophils # (0.0-0.2) K/mcL Sodium (136-145) mEq/L Potassium (3.5-5.1) mEq/L Chloride (98-107) mEq/L Carbon Dioxide (23-29) mEq/L BUN (6-20) mg/dL Creatinine (0.70-1.30) mg/dL Est GFR ( Amer) (> 60) Est GFR (Non-Af Amer) (> 60) BUN/Creatinine Ratio (6-26) Glucose (70-105) mg/dL Calculated Osmolality (280-300) Lactic Acid 0.9 (0.5-2.2) mmol/L Calcium (8.6-10.3) mg/dL Total Bilirubin (0.3-1.0) mg/dL Direct Bilirubin (0.0-0.2) mg/dL Indirect Bilirubin (0.0-1.2) mg/dL AST (13-39) Units/L ALT (7-52) Units/L Alkaline Phosphatase (34-104) Units/L Creatine Kinase (30-223) Units/L Troponin I (< 0.04) ng/mL Serum Total Protein (6.4-8.9) g/dL Albumin (3.5-5.7) g/dL Globulin (2.4-3.5) g/dL Albumin/Globulin Ratio (1.1-2.2) Lipase (11-82) Units/L Urine Color (Yellow) Urine Clarity (Clear) Urine pH (5.0-8.0) pH Units Ur Specific Constantine (1.010-1.025) Urine Protein (Neg-Trace) mg/dL Urine Glucose (UA) (Normal) mg/dL Urine Ketones (Negative) mg/dL Urine Blood (Negative) Urine Nitrite (Negative) Urine Bilirubin (Negative) Urine Urobilinogen (Normal) mg/dL Ur Leukocyte Esterase (Negative) Urine Microscopic RBC (0-3) per hpf Urine Microscopic WBC (0-3) per hpf Ur Squamous Epith Cells (None-Few) per lpf Urine Bacteria (None-Few) per hpf Hyaline Casts (None-Few) per lpf Ur Culture Indicated? (NO) Attestation Statement - Attestation Attestation: I, Paddy Saldana DO, examined this patient [id number] and my medical decision-making was reviewed with Imer Edwards PGY-3, Resident Physician. I agree with the documented findings, disposition and treatment plan as described except to the extent set forth below. Please see my progress notes for details. 52-year-old male seen and examined in conjunction with resident physician presents here today for evaluation of inability to walk without difficulty. Patient recently stopped taking alcohol detox during the hospital setting. He is discharged home with no medications and has been clean since leaving the hospital that time. Denies any trauma or injury. Over the last 24-48 hours patient has had increased difficulty with ambulating and an ataxic gait at home. He does have intermittent confusion. Denies fevers or chills chest pain shortness of breath headache vision changes nausea vomiting or diarrhea. Is comfortable. He does disclose some swelling in his bilateral lower extremities since leaving the hospital. Physical exam shows a well-appearing male head is atraumatic pupils are round reactive shock the muscles are intact. Lungs are clear heart is regular abdomen is soft. Lower extremities do have swelling but no signs of pitting edema. Patient has normal sensation the bilateral lower extremities. Has difficulty with walking to his legs give out. Reflexes are difficult to appreciate at this time. Patient does not have any neurologic deficits or issues. Because of a context of the presentation repeat labs will be ordered for elective right abnormality as well as liver related issues at this point. Chest x-ray as well will be collected. Patient is concerning for fluid rehydration muscle deterioration and other etiology. Patient will be provided with thiamine and folate while here in the emergency room to address any issues with her keys encephalopathy. Family was informed of the projected plan disposition pending treatment course and evaluation. 2300 Patient has normal laboratory workup in no acute issues. CPK still pending. Thiamine is infusing at this time and early differential at this point is the quniton keys presentation. Patient will be admitted for further observation evaluation symptomatically control. No other acute issues at this time. Hospitalist was contacted patient will be admitted for definitive management.
--- NOTE | 2018-01-07 22:45 | Emergency Department Note ---
Disposition Clinical Impression: Thiamine deficiency, Ataxic gait Leg pain Qualifiers: Laterality: bilateral Qualified Code(s): M79.604 - Pain in right leg Disposition: Admitted As Inpatient Condition: Fair Time of Disposition: 23:19 Extremity Problem HPI - General Chief complaint: ED Extremity Problem,Nontraumatic Stated complaint: Swelling Time Seen by Provider: 01/07/18 21:03 Source: patient, EMS Limitations: no limitations - History of Present Illness HPI Narrative: 52-year-old male here for swelling of the lower extremities and hands as well as generalized aching sensation "everywhere" that started around the time of a recent hospitalization 12/28-01/04/18 for alcohol withdrawal. He admits to drinking about a 12 pack of beer a day plus adding about a quart of moonshine to that. Prior to his recent hospitalization he was in alcohol withdrawal having hallucinations. CIWA protocol was instituted with improvement and patient went home on a Librium taper. He tells me that he is doing much better from the alcohol withdrawal standpoint however during his hospitalization he developed some swelling and this has been worsening somewhat since discharge. He is also complaining of ataxia. 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 His was present is concerned because he has decreased appetite and is not drinking as much fluid as normal. The patient endorses that he has been alcohol free ever since his hospital discharge he tells me that he is going to get a tattoo of a beer can to signify that he will never drink alcohol again, just like a tattoo on his chest of a cigarette that he got when he quit smoking. He also tells me he had lung reduction surgery due to emphysema at [facility] about 8 months ago Pain Scale: 0 - Related Data Home Medications Medication Instructions Recorded Confirmed Albuterol Sulfate [Proair Hfa] 2 puff IH Q4-6H PRN 12/28/17 01/07/18 Amantadine [Symmetrel] 100 mg PO BID 12/28/17 01/07/18 BuPROPion XL (24 HR) [Wellbutrin 300 mg PO DAILY 12/28/17 01/07/18 Xl] Fluticasone/Salmeterol [Advair 1 puff IH BID 12/28/17 01/07/18 500-50 Diskus] Folic Acid 1 mg PO DAILY 12/28/17 01/07/18 Multivit-Min/FA/Lycopen/Lutein [A 1 tab PO DAILY 12/28/17 01/07/18 Thru Z Select Multivit Tab] PARoxetine HCl [Paroxetine HCl] 40 mg PO DAILY 12/28/17 01/07/18 Pravastatin Sodium [Pravachol] 40 mg PO DAILY 12/28/17 01/07/18 Propranolol [Inderal] 10 mg PO BID 12/28/17 01/07/18 RisperiDONE [Risperdal] 0.5 mg PO TID 12/28/17 01/07/18 Tamsulosin [Flomax] 0.4 mg PO DAILY 12/28/17 01/07/18 Valproic Acid [Depakene] 250 mg PO QAM 12/28/17 01/07/18 Valproic Acid [Depakene] 500 mg PO QPM 12/28/17 01/07/18 Allergies Allergy/AdvReac Type Severity Reaction Status Date / Time Cyclobenzaprine AdvReac See Verified 12/28/17 11:53 [From Flexeril] Comments Constitutional: Denies: fever (Temp of 101.0 at home), chills Eyes: Denies: eye pain, eye discharge, vision change ENT ED: Denies: ear pain, throat pain, dental pain, hearing loss, epistaxis, congestion, dysphagia Cardiovascular: Reports: edema. Denies: chest pain, palpitations, dyspnea on exertion, syncope Respiratory: Denies: cough, dyspnea, wheezes, hemoptysis, stridor Gastrointestinal: Denies: abdominal pain, nausea, vomiting, diarrhea, constipation, hematemesis, melena, hematochezia Genitourinary: Denies: urgency, dysuria, frequency Musculoskeletal: Denies: joint swelling, arthralgia Integumentary: Denies: rash, abrasion, lesions, pruritus Neurological: Reports: headache, abnormal gait. Denies: weakness, numbness, paresthesias, vertigo Psychiatric: Denies: anxiety, depression Endocrine: Denies: heat or cold intolerance Hematological/Lymphatic: Denies: easy bleeding, easy bruising Past Medical History - Past Medical History Medical history: Reports: cirrhosis, GI bleed, other Surgical history: Reports: other Psychiatric history: Reports: PTSD, other - Social History Smoking Status: Former smoker Smokeless Tobacco Status: No Alcohol use: Reports: heavy Drug use: Reports: none Physical Exam - General Limitations: no limitations General appearance: alert - Head Head exam: atraumatic, normocephalic - Eye Eye exam: Present: normal appearance, PERRL, EOMI - ENT ENT exam: normal exam, normal oropharynx, mucous membranes moist - Neck Neck exam: Present: normal inspection, full ROM, trachea midline - Chest Chest inspection: Present: normal inspection, symmetric chest wall rise - Respiratory Respiratory exam: Present: normal lung sounds bilaterally - Cardiovascular Cardiovascular exam: Present: regular rate, normal rhythm, normal heart sounds - Abdominal Exam Abdominal exam: Present: soft, tenderness (RUQ), distention, normal bowel sounds. Absent: guarding, rebound - Expanded Upper Extremity Exam Hand exam: Present: swelling - Expanded Lower Extremity Exam Hip/Pelvis exam: Present: swelling - Neurological Exam Neurological exam: Present: alert, oriented X3, CN II-XII intact. Absent: normal gait Course Course Narrative: Patient seen and evaluated at bedside, he is in no acute distress. He is complaining of swelling in his hands and feet and a diffuse aching sensation that is worsening since he was discharged from the hospital 3 days ago. His and mama are present who are concerned that he is "walking funny". We will get initial labs Vital Signs Temperature 98.7 F 01/07/18 21:01 Pulse Rate 82 01/07/18 21:01 Respiratory Rate 18 01/07/18 21:01 Blood Pressure 115/83 01/07/18 21:01 O2 Sat by Pulse Oximetry 96 01/07/18 21:01 Temperature 98.7 F 01/07/18 21:01 Pulse Rate 75 01/07/18 22:37 Respiratory Rate 18 01/07/18 22:37 Blood Pressure 126/84 01/07/18 22:37 O2 Sat by Pulse Oximetry 98 01/07/18 22:37 Oxygen Delivery Oxygen Delivery Room Air Extremity Problem, [place] - [facility] Narrative Medical decision making narrative: Given his history of profound alcohol abuse, hepatitis B, cirrhosis, we will check his liver function, albumin, electrolytes, check for anemia. We will also check thiamine. . Patient's CPK came back elevated. His thiamine is pending at the time of transfer to the floor. I discussed the case with Dr. Salinas who will accept the patient and requests telemetry bed - Lab Data Result diagrams: 01/07/18 21:20 01/07/18 21:20 Lab Results 01/07/18 01/07/18 01/07/18 Range/Units 21:20 21:20 21:24 WBC 9.9 (4.3-11.1) K/mcL RBC 4.31 (4.19-5.50) M/mcL Hgb 13.7 (12.9-16.9) g/dL Hct 41.1 (37.5-50.1) % MCV 95.4 (83.0-100.0) fL MCH 31.8 (28.0-33.3) pg MCHC 33.3 (31.6-35.5) g/dL RDW 13.3 (11.5-14.5) % Plt Count 143 (140-400) K/mcL MPV 11.6 (9.4-12.4) fL Immature Gran % 0.3 (0-4) % Seg Neutrophils % 66.2 % Lymphocytes % 20.2 % Monocytes % 11.4 % Eosinophils % 1.6 % Basophils % 0.3 % Neutrophils # 6.5 (1.6-8.9) K/mcL Lymphocytes # 2.0 (0.6-4.6) K/mcL Monocytes # 1.1 (0.0-1.3) K/mcL Eosinophils # 0.2 (0.0-0.6) K/mcL Basophils # 0.0 (0.0-0.2) K/mcL Sodium 140 (136-145) mEq/L Potassium 3.6 (3.5-5.1) mEq/L Chloride 104 (98-107) mEq/L Carbon Dioxide 24 (23-29) mEq/L BUN 8 (6-20) mg/dL Creatinine 1.02 (0.70-1.30) mg/dL Est GFR ( Amer) > 60 (> 60) Est GFR (Non-Af Amer) > 60 (> 60) BUN/Creatinine Ratio 8 (6-26) Glucose 122 H (70-105) mg/dL Calculated Osmolality 290 (280-300) Lactic Acid (0.5-2.2) mmol/L Calcium 9.3 (8.6-10.3) mg/dL Total Bilirubin 0.4 (0.3-1.0) mg/dL Direct Bilirubin 0.1 (0.0-0.2) mg/dL Indirect Bilirubin 0.3 (0.0-1.2) mg/dL AST 17 (13-39) Units/L ALT 19 (7-52) Units/L Alkaline Phosphatase 70 (34-104) Units/L Creatine Kinase 417 H (30-223) Units/L Troponin I < 0.03 (< 0.04) ng/mL Serum Total Protein 6.7 (6.4-8.9) g/dL Albumin 4.2 (3.5-5.7) g/dL Globulin 2.5 (2.4-3.5) g/dL Albumin/Globulin Ratio 1.7 (1.1-2.2) Lipase 21 (11-82) Units/L Urine Color Yellow (Yellow) Urine Clarity Clear (Clear) Urine pH 7.0 (5.0-8.0) pH Units Ur Specific [place] 1.005 L (1.010-1.025) Urine Protein Negative (Neg-Trace) mg/dL Urine Glucose (UA) Normal (Normal) mg/dL Urine Ketones Negative (Negative) mg/dL Urine Blood Trace H (Negative) Urine Nitrite Positive A (Negative) Urine Bilirubin Negative (Negative) Urine Urobilinogen Normal (Normal) mg/dL Ur Leukocyte Esterase Large H (Negative) Urine Microscopic RBC 0-3 (0-3) per hpf Urine Microscopic WBC 30-50 H (0-3) per hpf Ur Squamous Epith Cells Few (None-Few) per lpf Urine Bacteria None Seen (None-Few) per hpf Hyaline Casts None Seen (None-Few) per lpf Ur Culture Indicated? YES A (NO) 01/07/18 Range/Units 21:56 WBC (4.3-11.1) K/mcL RBC (4.19-5.50) M/mcL Hgb (12.9-16.9) g/dL Hct (37.5-50.1) % MCV (83.0-100.0) fL MCH (28.0-33.3) pg MCHC (31.6-35.5) g/dL RDW (11.5-14.5) % Plt Count (140-400) K/mcL MPV (9.4-12.4) fL Immature Gran % (0-4) % Seg Neutrophils % % Lymphocytes % % Monocytes % % Eosinophils % % Basophils % % Neutrophils # (1.6-8.9) K/mcL Lymphocytes # (0.6-4.6) K/mcL Monocytes # (0.0-1.3) K/mcL Eosinophils # (0.0-0.6) K/mcL Basophils # (0.0-0.2) K/mcL Sodium (136-145) mEq/L Potassium (3.5-5.1) mEq/L Chloride (98-107) mEq/L Carbon Dioxide (23-29) mEq/L BUN (6-20) mg/dL Creatinine (0.70-1.30) mg/dL Est GFR ( Amer) (> 60) Est GFR (Non-Af Amer) (> 60) BUN/Creatinine Ratio (6-26) Glucose (70-105) mg/dL Calculated Osmolality (280-300) Lactic Acid 0.9 (0.5-2.2) mmol/L Calcium (8.6-10.3) mg/dL Total Bilirubin (0.3-1.0) mg/dL Direct Bilirubin (0.0-0.2) mg/dL Indirect Bilirubin (0.0-1.2) mg/dL AST (13-39) Units/L ALT (7-52) Units/L Alkaline Phosphatase (34-104) Units/L Creatine Kinase (30-223) Units/L Troponin I (< 0.04) ng/mL Serum Total Protein (6.4-8.9) g/dL Albumin (3.5-5.7) g/dL Globulin (2.4-3.5) g/dL Albumin/Globulin Ratio (1.1-2.2) Lipase (11-82) Units/L Urine Color (Yellow) Urine Clarity (Clear) Urine pH (5.0-8.0) pH Units Ur Specific [place] (1.010-1.025) Urine Protein (Neg-Trace) mg/dL Urine Glucose (UA) (Normal) mg/dL Urine Ketones (Negative) mg/dL Urine Blood (Negative) Urine Nitrite (Negative) Urine Bilirubin (Negative) Urine Urobilinogen (Normal) mg/dL Ur Leukocyte Esterase (Negative) Urine Microscopic RBC (0-3) per hpf Urine Microscopic WBC (0-3) per hpf Ur Squamous Epith Cells (None-Few) per lpf Urine Bacteria (None-Few) per hpf Hyaline Casts (None-Few) per lpf Ur Culture Indicated? (NO) Attestation Statement - Attestation Attestation: I, Paddy Saldana DO, examined this patient [id number] and my medical decision-making was reviewed with Imer Edwards PGY-3, Resident Physician. I agree with the documented findings, disposition and treatment plan as described except to the extent set forth below. Please see my progress notes for details.
[2018-01-07 22:49] LABS: Creatine Kinase 417 Units/L (30-223)
--- NOTE | 2018-01-08 05:04 | Internal Med History&Physical ---
Date of Encounter: 01/08/18 Time of Encounter: 04:45 Internal Medicine - H&P: HPI Admitted From: Emergency Dept Plans for Post Hospital Care: Home History of present illness: Mr. Moeller is a 52 year old male with past medical hx of ETOH abuse, COPD. at bedside. Pt was discahrged 01/04/2018 following management for ETOH withdrawal. He presents to ED today with complaint of B/L LE edema and generalized edema. Denies CP. states pt has been compliant with prescribed Librium taper and that he has not had any ETOH since his last discharge. Pt reports pain all over. In ED CBC wnl. BMP wl. Glucose 122. CK 417 troponin < 0.03 UA nitrite positive, large leuks,30-50 WBC Past Med Surg Social Fam HX - Past Medical History Medical history: cirrhosis, GI bleed, other Additional medical history: HEP B, ETOH ABUSE Psychiatric history: PTSD, other - Past Surgical History Surgical History: non-contributory, other Additional surgical history: t&a, lung reduction surgery - Social History Smoking Status: Former smoker Smokeless Tobacco Status: No Alcohol use: heavy Drug use: none - Family History Father Adopted: No Family Member Ethnicity: Non- Living Status: Still Living Hx Family Cardiac Disorders: Yes (pacer/defib,[place]) Hx Family Respiratory Disorders: Yes (COPD) Hx Family Cancer: No Hx Family GI Disorders: No Hx Family Endocrine Disorder: Yes (DM) Hx Family Neuromuscular Disorders: No Hx Family Neurologic Disorders: No Hx Family HEENT Disorders: No Hx Family Autoimmune Disorders: No Internal Medicine - H&P: Meds Albuterol Sulfate [Proair Hfa] 2 puff IH Q4-6H PRN 12/28/17 [History] Amantadine [Symmetrel] 100 mg PO BID 12/28/17 [History] BuPROPion XL (24 HR) [Wellbutrin Xl] 300 mg PO DAILY 12/28/17 [History] Fluticasone/Salmeterol [Advair 500-50 Diskus] 1 puff IH BID 12/28/17 [History] Folic Acid 1 mg PO DAILY 12/28/17 [History] Multivit-Min/FA/Lycopen/Lutein [A Thru Z Select Multivit Tab] 1 tab PO DAILY 12/10 [History] PARoxetine HCl [Paroxetine HCl] 40 mg PO DAILY 12/28/17 [History] Pravastatin Sodium [Pravachol] 40 mg PO DAILY 12/28/17 [History] Propranolol [Inderal] 10 mg PO BID 12/28/17 [History] RisperiDONE [Risperdal] 0.5 mg PO TID 12/28/17 [History] Tamsulosin [Flomax] 0.4 mg PO DAILY 12/28/17 [History] Valproic Acid [Depakene] 250 mg PO QAM 12/28/17 [History] Valproic Acid [Depakene] 500 mg PO QPM 12/28/17 [History] 3 Allergy/AdvReac Type Severity Reaction Status Date / Time Cyclobenzaprine AdvReac See Verified 12/28/17 11:53 [From Flexeril] Comments All Systems PM: A 10-system review of systems was performed and is negative for pertinent findings except as documented above in the HPI. - Constitutional Vitals: Temp Pulse Resp BP Pulse Ox 97.9 F 80 16 136/88 90 01/08/18 03:13 01/08/18 03:13 01/08/18 03:13 01/08/18 03:13 01/08/18 03:13 General appearance: Present: A&O X 3, no acute distress - Head Head exam: Present: atraumatic, normocephalic - Eye Eye exam: Present: PERRL, conjuntiva pink, sclera anicteric Pupils: Present: PERRL - Neck Neck exam general surgery: Present: supple, trachea midline. Absent: lymphadenopathy - Respiratory Respiratory exam: Present: CTAB. Absent: accessory muscle use, rales, rhonchi, wheezes - Cardiovascular Cardiovascular exam: Present: RRR, +S1, +S2. Absent: diastolic murmur, gallop, rubs, systolic murmur - GI/Abdominal GI/Abdominal exam: Present: normal bowel sounds, soft, no peritoneal signs. Absent: distended, tenderness - Extremities Exam Extremities exam: Present: warm, radial pulses palpable and symmetrical. Absent : calf tenderness, cyanotic, pedal edema - Neurological Exam Neurological exam: Present: CN II-XII intact, oriented X3, no focal deficits. Absent: pronater drift, facial droop, speech deficit - Skin Skin exam: Present: dry, intact Internal Med - H&P Results - Labs CBC & Chem 7: 01/07/18 21:20 01/07/18 21:20 - Assessment and plan (1) Volume overload Current Visit: Yes Status: Acute Assessment and plan: Cardiac vs liver in origin. Will check Echo and cycle troponin. Will give Lasix 40 mg IV x BID and monitor fluid status. Qualifiers: Qualified Code(s): E87.70 - Fluid overload, unspecified (2) Edema Current Visit: Yes Status: Acute Qualifiers: Qualified Code(s): R60.9 - Edema, unspecified (3) Acute cystitis without hematuria Current Visit: Yes Status: Acute Assessment and plan: Rocephin (4) COPD (chronic obstructive pulmonary disease) Current Visit: No Status: Chronic Assessment and plan: Resume home resp regimen. not in exacerbation at this time. Qualifiers: COPD type: emphysema Emphysema type: unspecified Qualified Code(s): J43.9 - Emphysema, unspecified (5) Hepatitis B Current Visit: No Status: Chronic Qualifiers: Viral hepatitis chronicity: unspecified Hepatic coma status: without hepatic coma Hepatitis delta agent presence: without delta-agent Qualified Code(s): B19.10 - Unspecified viral hepatitis B without hepatic coma - Time Spent With Patient Total time spent is greater than 50% in coordination of care (as documented) at patient's floor/unit and/or counseling patient: 25 - 35 minutes
[2018-01-08] MEDS ORDERED: Acetaminophen 325 MG TABLET PO PRN (05:12)
[2018-01-08] MEDS ORDERED: Naloxone 0.4 MG/ML INJ IVP PRN (05:12)
[2018-01-08] MEDS: Valproic Acid 250 MG CAPSULE PO SCH (08:16)
[2018-01-08] MEDS: Furosemide 40 MG/4 ML VIAL IVP SCH ×2 (08:16→15:53)
[2018-01-08] MEDS: Multivit/Ca/Min/Fe/FA 1 TAB TABLET PO SCH (08:16)
[2018-01-08] MEDS: risperiDONE 0.25 MG TABLET PO SCH ×3 (08:17→23:05)
[2018-01-08] MEDS: Folic Acid 1 MG TABLET PO SCH (08:17)
[2018-01-08] MEDS: BuPROPion XL (24 HR) 150 MG TABLET PO SCH (08:17)
[2018-01-08] MEDS ORDERED: cefTRIAXone 2,000 MG in 0.9 % Sodium Chloride Mini Bag 100 ML IVPB ONE (09:26)
--- NOTE | 2018-01-08 09:27 | Internal Med Progress Note ---
Date of Encounter: 01/08/18 Time of Encounter: 09:23 - Assessment and plan (1) Acute cystitis without hematuria Current Visit: Yes Status: Acute Assessment and plan: UA positive for nitrates and leukocyte esterase cultures sent-follow and narrow based on results Continue rocephin daily labs (2) Volume overload Current Visit: Yes Status: Acute Assessment and plan: BLE swelling, 1+ pitting edema no prior h/o CHF Last TTE July/2015 LVEF 65%-grossly normal Obtain TTE now Denies any shortness of breath Continue diuretics monitor renal function -Strict intake and output monitoring -Daily weights -Continuous telemetry, continuous SPO2 monitoring -O2 per nasal cannula titrate to maintain SPO2 greater than 92% Qualifiers: Qualified Code(s): E87.70 - Fluid overload, unspecified (3) Edema Current Visit: Yes Status: Acute Qualifiers: Edema type: generalized Qualified Code(s): R60.1 - Generalized edema (4) COPD (chronic obstructive pulmonary disease) Current Visit: No Status: Chronic Assessment and plan: not in acute exacerbation continue home resp meds Qualifiers: COPD type: emphysema Emphysema type: unspecified Qualified Code(s): J43.9 - Emphysema, unspecified (5) Hepatitis B Current Visit: No Status: Chronic Qualifiers: Viral hepatitis chronicity: unspecified Hepatic coma status: without hepatic coma Hepatitis delta agent presence: without delta-agent Qualified Code(s): B19.10 - Unspecified viral hepatitis B without hepatic coma - Time Spent With Patient Total time spent is greater than 50% in coordination of care (as documented) at patient's floor/unit and/or counseling patient: 25 - 35 minutes - Subjective Interval history: Patient seen and examined at bedside today. No acute changes overnight. Patient reporting the bilateral lower extremity swelling is improving. Denies any increase in abdominal girth. Denies any shortness of breath. Discussed plan of care today. Patient verbalizes understanding, denies any further questions at this time. - Constitutional Vitals: Temp Pulse Resp BP Pulse Ox 98.2 F 83 18 106/70 92 01/08/18 07:49 01/08/18 07:49 01/08/18 07:49 01/08/18 07:49 01/08/18 07:49 General appearance: Present: A&O X 3, no acute distress - Head Head exam: Present: atraumatic, normocephalic - Eye Eye exam: Present: PERRL, conjuntiva pink, sclera anicteric Pupils: Present: PERRL - Neck Neck exam general surgery: Present: supple, trachea midline. Absent: lymphadenopathy - Respiratory Respiratory exam: Present: decreased breath sounds, CTAB. Absent: accessory muscle use, rales, rhonchi, wheezes - Cardiovascular Cardiovascular exam: Present: RRR, +S1, +S2. Absent: diastolic murmur, gallop, rubs, systolic murmur - GI/Abdominal GI/Abdominal exam: Present: distended, normal bowel sounds, soft, no peritoneal signs. Absent: tenderness - Extremities Exam Extremities exam: Present: warm, radial pulses palpable and symmetrical. Absent : calf tenderness, cyanotic, pedal edema - Neurological Exam Neurological exam: Present: CN II-XII intact, oriented X3, no focal deficits. Absent: pronater drift, facial droop, speech deficit - Skin Skin exam: Present: dry, intact Internal Medicine: Result - Labs CBC & Chem 7: 01/07/18 21:20 01/07/18 21:20 Labs: Cardiac Enzymes 01/08/18 Range/Units 06:06 Troponin I < 0.03 (< 0.04) ng/mL Consult Discharge Plan - Plan Referrals: Winifred Eddy, [facility] [Primary Care Provider] -
[2018-01-08] MEDS ORDERED: Budesonide/Formoterol 160/4.5 MDI IH SCH (10:00)
[2018-01-08 11:52] LABS: Troponin I < 0.03 ng/mL (< 0.04)
[2018-01-08 14:43] LABS: Creatine Kinase 285 Units/L (30-223)
[2018-01-09 04:43] LABS: Basophils % 0.6 %; Eosinophils # 0.1 K/mcL (0.0-0.6); Eosinophils % 1.9 %; Hematocrit 37.7 % (37.5-50.1); Hemoglobin 12.7 g/dL (12.9-16.9); Immature Granulocytes % 0.6 % (0-4); Lymphocytes # 1.9 K/mcL (0.6-4.6); Lymphocytes % 29.4 %; Mean Corpuscular HGB Conc 33.7 g/dL (31.6-35.5); Mean Platelet Volume 11.7 fL (9.4-12.4); Monocytes # 0.9 K/mcL (0.0-1.3); Monocytes % 13.6 %; Neutrophils # 3.5 K/mcL (1.6-8.9); Platelet Count 145 K/mcL (140-400); Red Blood Count 3.97 M/mcL (4.19-5.50); Red Cell Distribution Width 13.3 % (11.5-14.5); Segmented Neutrophils % 53.9 %
[2018-01-09 05:07] LABS: BUN/Creatinine Ratio 8 (6-26); Blood Urea Nitrogen 7 mg/dL (6-20); Carbon Dioxide 31 mEq/L (23-29); Chloride 104 mEq/L (98-107); Glucose 107 mg/dL (70-105); Osmolality,Calculated 292 (280-300); Potassium 3.2 mEq/L (3.5-5.1); Sodium 142 mEq/L (136-145); eGFR For African Americans > 60 (> 60); eGFR For Non-African Americans > 60 (> 60)
[2018-01-09] MEDS: Furosemide 40 MG/4 ML VIAL IVP SCH (07:35)
[2018-01-09] MEDS: Valproic Acid 250 MG CAPSULE PO SCH (07:36)
[2018-01-09] MEDS: risperiDONE 0.25 MG TABLET PO SCH (07:36)
[2018-01-09] MEDS: BuPROPion XL (24 HR) 150 MG TABLET PO SCH (07:36)
[2018-01-09] MEDS: Multivit/Ca/Min/Fe/FA 1 TAB TABLET PO SCH (07:36)
[2018-01-09] MEDS: Folic Acid 1 MG TABLET PO SCH (07:36)
[2018-01-09] MEDS ORDERED: cefTRIAXone 1,000 MG in Water for inj. (sterile) 20 ML 10 ML IVP SCH (09:00)
--- NOTE | 2018-01-09 11:24 | Discharge Summary ---
- NOTES TO OUTPATIENT PROVIDER Notes to Outpatient Provider: Patient admitted with new B/L LE edema, 2+ pitting on admission. No longer pitting at time of discharge with mild generalized bilateral lower extremity edema. Sent home with 3 day dose of 20 mg daily Lasix. Instructed to follow-up with PCP within 1 week of discharge. Patient may benefit from a liver ultrasound in outpatient setting for further evaluation of liver disease is being cause of volume overload. Additionally, he was found to have urinary tract infection. Being sent home on oral antibiotics. Orders not resulted at time of discharge: Pending orders 01/10/18 04:00 Basic Metabolic Panel AM 0400 CK [Creatine Kinase] AM 0400 01/11/18 04:00 Basic Metabolic Panel AM 0400 Date of Encounter: 01/09/18 Time of Encounter: 11:24 - Discharge Diagnosis (1) Acute cystitis without hematuria Priority: Primary Status: Acute Assessment and Plan: UA positive for nitrates and leukocyte esterase No prior history of UTI, not diabetic and not immunocompromised, low risk for complicated infection cultures sent-preliminary growing gram-positive cocci Denies any urinary symptoms Discharge on Macrobid 100 mg twice a day by mouth 5 days Instructed to follow-up with PCP within 1 week of discharge. Also, informed to return to the ED should he develop fevers, chills, rigors, flank pain. Patient instructed to complete entire antibiotic course. Verbalizes understanding. Denies any further questions at this time (2) Volume overload Priority: Secondary Status: Acute Assessment and Plan: Edema improving, generalized, nonpitting today no prior h/o CHF TTE-LVEF 65%, mild LV diastolic dysfunction, normal RV structure and function Denies any shortness of breath, stable from a respiratory perspective on room air lungs clear/diminished AP and L Continue diuretics, Lasix 20 mg by mouth daily 3 days at [place] Patient instructed to follow-up with PCP within 1 week of discharge. Also, informed to return to the ED should BLE swelling persist or worsen or should he also began to experience shortness of breath with swelling. Qualifiers: Qualified Code(s): E87.70 - Fluid overload, unspecified (3) Edema Priority: Secondary Status: Acute Assessment and Plan: BLE edema improving 1+ pitting edema yesterday, nonpitting today Mild generalized BLE edema Sending home with three-day course of 20 mg by mouth Lasix daily Follow-up with PCP within 1 week of discharge Patient instructed to monitor intake and output as well as daily weight Verbalizes understanding, denies any further questions at bedside, also verbalizes understanding, denies any further questions Qualifiers: Edema type: generalized Qualified Code(s): R60.1 - Generalized edema (4) COPD (chronic obstructive pulmonary disease) Priority: Secondary Status: Chronic Assessment and Plan: not in acute exacerbation continue home resp meds at d/c Stable from a respiratory perspective at discharge Lungs clear/diminished throughout AP and L Qualifiers: COPD type: emphysema Emphysema type: unspecified Qualified Code(s): J43.9 - Emphysema, unspecified (5) Hepatitis B Priority: Secondary Status: Chronic Qualifiers: Viral hepatitis chronicity: unspecified Hepatic coma status: without hepatic coma Hepatitis delta agent presence: without delta-agent Qualified Code(s): B19.10 - Unspecified viral hepatitis B without hepatic coma Hospital course: Mr. Moeller is a 52 year old male Please see assessment and plan for hospital course Discharge discussed with: patient, family, nurse - Time Spent with Patient Total time spent providing and/or coordinating discharge services: Less than 30 minutes - Discharge Medications Prescriptions: Furosemide [Lasix] 20 mg PO DAILY 3 Days #3 tablet Nitrofurantoin (BID) [Macrobid] 100 mg PO BID 5 Days #5 capsule Home Medications: Albuterol Sulfate [Proair Hfa] 2 puff IH Q4-6H PRN 12/28/17 [History] Amantadine [Symmetrel] 100 mg PO BID 12/28/17 [History] BuPROPion XL (24 HR) [Wellbutrin Xl] 300 mg PO DAILY 12/28/17 [History] Fluticasone/Salmeterol [Advair 500-50 Diskus] 1 puff IH BID 12/28/17 [History] Folic Acid 1 mg PO DAILY 12/28/17 [History] Multivit-Min/FA/Lycopen/Lutein [A Thru Z Select Multivit Tab] 1 tab PO DAILY 12/10 [History] PARoxetine HCl [Paroxetine HCl] 40 mg PO DAILY 12/28/17 [History] Pravastatin Sodium [Pravachol] 40 mg PO DAILY 12/28/17 [History] Propranolol [Inderal] 10 mg PO BID 12/28/17 [History] RisperiDONE [Risperdal] 0.5 mg PO TID 12/28/17 [History] Tamsulosin [Flomax] 0.4 mg PO DAILY 12/28/17 [History] Valproic Acid [Depakene] 250 mg PO QAM 12/28/17 [History] Valproic Acid [Depakene] 500 mg PO QPM 12/28/17 [History] Furosemide [Lasix] 20 mg PO DAILY 3 Days #3 tablet 01/09/18 [Rx] Nitrofurantoin (BID) [Macrobid] 100 mg PO BID 5 Days #5 capsule 01/09/18 [Rx] Allergies/Adverse Reactions: 3 Allergy/AdvReac Type Severity Reaction Status Date / Time Cyclobenzaprine AdvReac See Verified 12/28/17 11:53 [From Flexeril] Comments Date of admission: 01/07/18 23:21 Primary care physician: Winifred Eddy HEAT SEALING MACHINE OPERATOR Discharging clinician: Shaan Pryor Anticipated date of discharge: 01/09/18 - Constitutional Vitals: Temp Pulse Resp BP Pulse Ox 98.1 F 87 16 109/77 91 01/09/18 08:25 01/09/18 08:25 01/09/18 08:25 01/09/18 08:25 01/09/18 08:25 General appearance: Present: A&O X 3, no acute distress - Head Head exam: Present: atraumatic, normocephalic - Eye Eye exam: Present: PERRL, conjuntiva pink, sclera anicteric Pupils: Present: PERRL - Neck Neck exam general surgery: Present: supple, trachea midline. Absent: lymphadenopathy - Respiratory Respiratory exam: Present: CTAB. Absent: accessory muscle use, rales, rhonchi, wheezes - Cardiovascular Cardiovascular exam: Present: RRR, +S1, +S2. Absent: diastolic murmur, gallop, rubs, systolic murmur - GI/Abdominal GI/Abdominal exam: Present: normal bowel sounds, soft, no peritoneal signs. Absent: distended, tenderness - Extremities Exam Extremities exam: Present: normal capillary refill, normal inspection, warm, radial pulses palpable and symmetrical. Absent: calf tenderness, cyanotic, pedal edema Additional comments: Generalized BLE edema, nonpitting, improving compared to yesterday's assessment - Neurological Exam Neurological exam: Present: CN II-XII intact, oriented X3, no focal deficits. Absent: pronater drift, facial droop, speech deficit - Skin Skin exam: Present: dry, intact - Patient Status Disposition: Home, Self-Care Condition: Good Functional capacity at discharge: independent ambulation Overall status at discharge: patient is progressing back to baseline - Discharge Instructions Follow Up With: Winifred Eddy, HEAT SEALING MACHINE OPERATOR [Primary Care Provider] - - Diet and Activity Activity: resume usual activities as tolerated Diet: advance to your usual diet, other (Monitor intake and output)
[2018-01-09 11:30] VITALS: BP 116/78
== END 2018-01-09 12:44 | disposition home or self-care (01) ==
LOC: EMEROO 20:48 → 3BNU 20:48
PROVIDERS: ADMIT Internal Medicine; ATTEND Pediatrics